=== PATIENT | male | born 1945 | race Caucasian/White ===

== ENCOUNTER 2016-10-21 15:42 | Inpatient (IN) | payer MEDICARE ==
[~2016-10-21] VITALS: Ht 193 cm; Wt 90.7 kg
[2016-10-21] MEDS ORDERED: IV NORMAL SALINE 1000ML BAG 1,000 ML IV SCH (16:07)
--- NOTE | 2016-10-21 16:43 | RAD ---
Indication: Cough and syncope. Time of exam 1635 hours. FINDINGS: The heart size is normal. The lungs are clear. No pleural effusion or pneumothorax is identified. The pulmonary vascularity is normal. IMPRESSION: No acute abnormality detected.
[2016-10-21 16:50] LABS: BASO % 1 % (0-3); EOS % 1 % (0-3); HEMATOCRIT 45.9 % (39.0-53.0); HEMOGLOBIN 15.4 g/dL (13.0-17.5); LYMPH # 1.3 x10^3/uL (1.0-4.8); LYMPH % 16 % (24-48); MEAN CORPUSCULAR HEMOGLOBIN 31 pg (25-35); MEAN CORPUSCULAR HGB CONC 34 g/dL (31-37); MEAN CORPUSCULAR VOLUME 91 fL (79-100); MONO % 10 % (0-9); NEUT % 72 % (31-73); PLATELET COUNT 203 x10^3/uL (140-400); RED BLOOD COUNT 5.02 x10^6/uL (4.30-5.70); RED CELL DISTRIBUTION WIDTH 13.4 % (11.5-14.5)
[2016-10-21 16:59] LABS: CALCIUM 9.4 mg/dL (8.5-10.1); CREATININE 1.2 mg/dL (0.7-1.3); GFR 59.7; POTASSIUM 3.7 mmol/L (3.5-5.1)
[2016-10-21 17:05] LABS: TOTAL BILIRUBIN 0.4 mg/dL (0.2-1.0); TOTAL PROTEIN 8.1 g/dL (6.4-8.2)
[2016-10-21 17:20] LABS: CKMB MASS < 0.5 ng/mL (0.0-3.6); CREATINE KINASE 55 U/L (39-308)
--- NOTE | 2016-10-21 18:16 | PHYS DOC ---
Past Medical History Past Medical History: No Pertinent History Past Surgical History: Other Additional Past Surgical Histo: "INTESTINE GROWTH REMOVAL" Alcohol Use: None Drug Use: None Adult General Chief Complaint Chief Complaint: syncope HPI HPI Patient is a 70 year old male brought to the ED from his doctor's office after having a syncopal episode. I was called by Dr. Hooker who told me that the patient has had a cough and been sick, his blood pressure was low in the office and he had a brief syncopal episode. He advised the patient to come to the ED for further evaluation. The patient tells me that he had some vomiting and diarrhea this morning. He's had a cough for about 3 days. Patient's said he is just been in bed for that time and has not been eating or drinking that much either. The patient does not have COPD. He is not a smoker. He is in good general health. PCP Dr. Hooker Review of Systems Review of Systems Constitutional: He has had chills Eyes: Denies change in visual acuity, redness, or eye pain [] HENT: Denies nasal congestion or sore throat [] Respiratory: As in history of present illness [] Cardiovascular: Chest pain sounds musculoskeletal and not cardiac GI: Positive for a couple of episodes each of vomiting and diarrhea just today : Denies dysuria or hematuria [] Musculoskeletal: Denies back pain or joint pain [] Integument: Denies rash or skin lesions [] Neurologic: Denies headache, focal weakness or sensory changes [] Current Medications Current Medications Current Medications Medications (Trade) Dose Ordered Sig/Amarjit Start Time Stop Time Status Last Admin Dose Admin Sodium Chloride (Iv Sodium Chloride 0.9% 1000ml Bag) 1,000 ml @ 1,000 mls/hr Q1H 10/21/16 16:07 10/21/16 17:06 DC 10/21/16 16:29 1,000 MLS/HR Allergies Allergies Allergies Coded Allergies Type Severity Reaction Last Updated Verified No Known Drug Allergies 10/21/16 No Physical Exam Physical Exam Constitutional: Well developed, well nourished, alert, appears to not feel well , appears weak, systolic blood pressure 105 HENT: Normocephalic, atraumatic, bilateral external ears normal, nose normal. [] Eyes: conjunctiva normal, no discharge. [] Neck: Normal range of motion, no stridor. [] Cardiovascular:Heart rate regular rhythm, no murmur [] Lungs & Thorax: Bilateral breath sounds clear to auscultation [] Abdomen: Bowel sounds normal, soft, no tenderness, no masses, no pulsatile masses. [] Skin: Warm, dry, no erythema, no rash. [] Extremities: No tenderness, no cyanosis, no clubbing, ROM intact, no edema. [] Neurologic: Alert and oriented X 3, normal motor function, normal sensory function, no focal deficits noted. [] Current Patient Data Vital Signs Vital Signs Date Time Temp Pulse Resp B/P Pulse Ox O2 Delivery O2 Flow Rate FiO2 10/21/16 17:55 73 16 122/59 97 Room Air 10/21/16 16:04 97.6 97.6 Lab Values Laboratory Tests Test 10/21/16 16:30 White Blood Count 8.0x10^3/uL (4.0-11.0) Red Blood Count 5.02x10^6/uL (4.30-5.70) Hemoglobin 15.4g/dL (13.0-17.5) Hematocrit 45.9% (39.0-53.0) Mean Corpuscular Volume 91fL (79-100) Mean Corpuscular Hemoglobin 31pg (25-35) Mean Corpuscular Hemoglobin Concent 34g/dL (31-37) Red Cell Distribution Width 13.4% (11.5-14.5) Platelet Count 203x10^3/uL (140-400) Neutrophils (%) (Auto) 72% (31-73) Lymphocytes (%) (Auto) 16% (24-48) L Monocytes (%) (Auto) 10% (0-9) H Eosinophils (%) (Auto) 1% (0-3) Basophils (%) (Auto) 1% (0-3) Neutrophils # (Auto) 5.8x10^3uL (1.8-7.7) Lymphocytes # (Auto) 1.3x10^3/uL (1.0-4.8) Monocytes # (Auto) 0.8x10^3/uL (0.0-1.1) Eosinophils # (Auto) 0.1x10^3/uL (0.0-0.7) Basophils # (Auto) 0.0x10^3/uL (0.0-0.2) Sodium Level 141mmol/L (136-145) Potassium Level 3.7mmol/L (3.5-5.1) Chloride Level 103mmol/L (98-107) Carbon Dioxide Level 29mmol/L (21-32) Anion Gap 9 (6-14) Blood Urea Nitrogen 15mg/dL (8-26) Creatinine 1.2mg/dL (0.7-1.3) Estimated GFR (Cockcroft-Gault) 59.7 BUN/Creatinine Ratio 13 (6-20) Glucose Level 132mg/dL (70-99) H Lactic Acid Level 1.6mmol/L (0.4-2.0) Calcium Level 9.4mg/dL (8.5-10.1) Total Bilirubin 0.4mg/dL (0.2-1.0) Aspartate Amino Transferase (AST) 18U/L (15-37) Alanine Aminotransferase (ALT) 28U/L (16-63) Alkaline Phosphatase 91U/L (46-116) Creatine Kinase 55U/L (39-308) Creatine Kinase MB (Mass) < 0.5ng/mL (0.0-3.6) Creatine Kinase MB Relative Index % (0-4) Troponin I Quantitative < 0.017ng/mL (0.000-0.055) YL-Pmr-I-Type Natriuretic Peptide 245pg/mL (0-124) H Total Protein 8.1g/dL (6.4-8.2) Albumin 4.0g/dL (3.4-5.0) Albumin/Globulin Ratio 1.0 (1.0-1.7) Laboratory Tests 10/21/16 16:30 Laboratory Tests 10/21/16 16:30 EKG EKG 12-lead EKG read by me. Sinus rhythm. Heart rate 60. There are no acute ST or T wave changes indicative of ischemia or infarction. No STEMI. 1556 [] Radiology/Procedures Radiology/Procedures One view chest x-ray read by me. Heart size normal. Lung swain are clear. No pneumonia. [] Course & Med Decision Making Course & Med Decision Making Pertinent Labs and Imaging studies reviewed. (See chart for details) 70-year-old male who has had a cough for about 3 days and then today had some vomiting and diarrhea, had a syncopal episode in his doctor's office. I discussed with the patient eating some labs, chest x-ray, EKG, and giving him some IV fluids, he is agreeable to that plan. Labs unremarkable for acute findings, chest x-ray does not show an infiltrate. Patient had 1 L IV normal saline in the ED and did feel a little bit better but still very weak just when sitting up on the edge of the cart with his legs dangling. The patient is still weak and unsteady after syncopal episode today, I believe he should be hospitalized for some more IV fluids. I do not see a reason for antibiotics at this time. I discussed the case with Dr. Mcgrath who will admit the patient. I wrote bridge orders.pl [] Dragon Disclaimer Dragon Disclaimer This electronic medical record was generated, in whole or in part, using a voice recognition dictation system. Departure Departure Impression: Primary Impression: Syncope Additional Impression: Dehydration Disposition: 09 ADMITTED INPATIENT Admitting Physician: Romana Hooker Condition: STABLE Referrals: ROMANA HOOKER MD (PCP) Problem Qualifiers SHWETHA RIDDLE MD Oct 21, 2016 18:16
[2016-10-21] MEDS: IV NORMAL SALINE 1000ML BAG 1,000 ML IV SCH (19:20)
[2016-10-21 20:38] VITALS: BP 124/56
[2016-10-21 23:12] LABS: BILIRUBIN,URINE NEGATIVE (NEG); GLUCOSE,URINE NEGATIVE (NEG); NITRITE,URINE NEGATIVE (NEG); PH,URINE 5.5; PROTEIN,URINE NEGATIVE (NEG-TRACE); UROBILINOGEN,URINE 0.2 mg/dL (0.2 mg/dL)
[2016-10-21 23:20] LABS: BACTERIA,URINE 0 /HPF (0-FEW); RBC,URINE 0 /HPF (0-2)
[2016-10-21 23:21] LABS: SQUAMOUS EPITHELIAL CELL,UR OCC /LPF
[2016-10-21 23:49] VITALS: BP 102/57
[2016-10-22] MEDS: IV NORMAL SALINE 1000ML BAG 1,000 ML IV SCH ×4 (00:30→16:47)
[2016-10-22 03:35] VITALS: BP 132/62
--- NOTE | 2016-10-22 06:31 | EKG ---
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
[2016-10-22 07:20] VITALS: BP 133/49
[2016-10-22 10:58] VITALS: BP 140/58
--- NOTE | 2016-10-22 11:01 | PDOC ---
PROGRESS NOTES Subjective Subjective Pt awake and pleasant. States he is feeling much better, however continues to c/ o generalized weakness. Pt states he continues to have no appetite and does have some mild nausea. Objective Objective Pt awake and alert. NAD. VSS. Tmax 100.4. Lungs CTA bilat. Resp even and unlabored. Pt on RA not requiring supplemental O2. Heart with RRR. No murmurs. Abdomen soft, nondistended, and tender throughout with palpation. Vital Signs Date Time Temp Pulse Resp B/P Pulse Ox O2 Delivery O2 Flow Rate FiO2 10/22/16 07:50 Room Air 10/22/16 07:20 100.4 75 19 133/49 94 100.4 Intake and Output 10/22/16 07:00 Intake Total 1000 ml Output Total 320 ml Balance 680 ml Intake Oral 0 ml IV Total 1000 ml Output Urine Total 320 ml # Voids 1 Assessment Assessment Problems Medical Problems: (1) Dehydration Status: Acute (2) Syncope Status: Acute Plan Plan of Care 1. Viral gastroenteritis with dehydration and syncope -CXR WNL -EKG without signs of ischemia -IVF bolus given in ER, running continuous NS at 200cc/hr -Labs relatively WNL -Tmax 100.4 Hopeful for Dc tomorrow am following rehydration. Comment Review of Relevant I have reviewed the following items lala (where applicable) has been applied. Labs Laboratory Tests Test 10/21/16 16:30 10/21/16 23:00 White Blood Count 8.0x10^3/uL (4.0-11.0) Red Blood Count 5.02x10^6/uL (4.30-5.70) Hemoglobin 15.4g/dL (13.0-17.5) Hematocrit 45.9% (39.0-53.0) Mean Corpuscular Volume 91fL (79-100) Mean Corpuscular Hemoglobin 31pg (25-35) Mean Corpuscular Hemoglobin Concent 34g/dL (31-37) Red Cell Distribution Width 13.4% (11.5-14.5) Platelet Count 203x10^3/uL (140-400) Neutrophils (%) (Auto) 72% (31-73) Lymphocytes (%) (Auto) 16% (24-48) Monocytes (%) (Auto) 10% (0-9) Eosinophils (%) (Auto) 1% (0-3) Basophils (%) (Auto) 1% (0-3) Neutrophils # (Auto) 5.8x10^3uL (1.8-7.7) Lymphocytes # (Auto) 1.3x10^3/uL (1.0-4.8) Monocytes # (Auto) 0.8x10^3/uL (0.0-1.1) Eosinophils # (Auto) 0.1x10^3/uL (0.0-0.7) Basophils # (Auto) 0.0x10^3/uL (0.0-0.2) Sodium Level 141mmol/L (136-145) Potassium Level 3.7mmol/L (3.5-5.1) Chloride Level 103mmol/L (98-107) Carbon Dioxide Level 29mmol/L (21-32) Anion Gap 9 (6-14) Blood Urea Nitrogen 15mg/dL (8-26) Creatinine 1.2mg/dL (0.7-1.3) Estimated GFR (Cockcroft-Gault) 59.7 BUN/Creatinine Ratio 13 (6-20) Glucose Level 132mg/dL (70-99) Lactic Acid Level 1.6mmol/L (0.4-2.0) Calcium Level 9.4mg/dL (8.5-10.1) Total Bilirubin 0.4mg/dL (0.2-1.0) Aspartate Amino Transf (AST/SGOT) 18U/L (15-37) Alanine Aminotransferase (ALT/SGPT) 28U/L (16-63) Alkaline Phosphatase 91U/L (46-116) Creatine Kinase 55U/L (39-308) Creatine Kinase MB (Mass) < 0.5ng/mL (0.0-3.6) Creatine Kinase MB Relative Index % (0-4) Troponin I Quantitative < 0.017ng/mL (0.000-0.055) WI-Tdb-O-Type Natriuretic Peptide 245pg/mL (0-124) Total Protein 8.1g/dL (6.4-8.2) Albumin 4.0g/dL (3.4-5.0) Albumin/Globulin Ratio 1.0 (1.0-1.7) Urine Collection Type Unknown Urine Color Yellow Urine Clarity Clear Urine pH 5.5 Urine Specific [place] 1.020 Urine Protein Negativemg/dL (NEG-TRACE) Urine Glucose (UA) Negativemg/dL (NEG) Urine Ketones (Stick) 15mg/dL (NEG) Urine Blood Negative (NEG) Urine Nitrite Negative (NEG) Urine Bilirubin Negative (NEG) Urine Urobilinogen Dipstick 0.2mg/dL (0.2 mg/dL) Urine Leukocyte Esterase Negative (NEG) Urine RBC 0/HPF (0-2) Urine WBC 1-4/HPF (0-4) Urine Squamous Epithelial Cells Occ/LPF Urine Bacteria 0/HPF (0-FEW) Urine Hyaline Casts Few/HPF Urine Mucus Marked/LPF Laboratory Tests Test 10/21/16 16:30 10/21/16 23:00 White Blood Count 8.0x10^3/uL (4.0-11.0) Red Blood Count 5.02x10^6/uL (4.30-5.70) Hemoglobin 15.4g/dL (13.0-17.5) Hematocrit 45.9% (39.0-53.0) Mean Corpuscular Volume 91fL (79-100) Mean Corpuscular Hemoglobin 31pg (25-35) Mean Corpuscular Hemoglobin Concent 34g/dL (31-37) Red Cell Distribution Width 13.4% (11.5-14.5) Platelet Count 203x10^3/uL (140-400) Neutrophils (%) (Auto) 72% (31-73) Lymphocytes (%) (Auto) 16% (24-48) Monocytes (%) (Auto) 10% (0-9) Eosinophils (%) (Auto) 1% (0-3) Basophils (%) (Auto) 1% (0-3) Neutrophils # (Auto) 5.8x10^3uL (1.8-7.7) Lymphocytes # (Auto) 1.3x10^3/uL (1.0-4.8) Monocytes # (Auto) 0.8x10^3/uL (0.0-1.1) Eosinophils # (Auto) 0.1x10^3/uL (0.0-0.7) Basophils # (Auto) 0.0x10^3/uL (0.0-0.2) Sodium Level 141mmol/L (136-145) Potassium Level 3.7mmol/L (3.5-5.1) Chloride Level 103mmol/L (98-107) Carbon Dioxide Level 29mmol/L (21-32) Anion Gap 9 (6-14) Blood Urea Nitrogen 15mg/dL (8-26) Creatinine 1.2mg/dL (0.7-1.3) Estimated GFR (Cockcroft-Gault) 59.7 BUN/Creatinine Ratio 13 (6-20) Glucose Level 132mg/dL (70-99) Lactic Acid Level 1.6mmol/L (0.4-2.0) Calcium Level 9.4mg/dL (8.5-10.1) Total Bilirubin 0.4mg/dL (0.2-1.0) Aspartate Amino Transf (AST/SGOT) 18U/L (15-37) Alanine Aminotransferase (ALT/SGPT) 28U/L (16-63) Alkaline Phosphatase 91U/L (46-116) Creatine Kinase 55U/L (39-308) Creatine Kinase MB (Mass) < 0.5ng/mL (0.0-3.6) Creatine Kinase MB Relative Index % (0-4) Troponin I Quantitative < 0.017ng/mL (0.000-0.055) HL-Cme-Z-Type Natriuretic Peptide 245pg/mL (0-124) Total Protein 8.1g/dL (6.4-8.2) Albumin 4.0g/dL (3.4-5.0) Albumin/Globulin Ratio 1.0 (1.0-1.7) Urine Collection Type Unknown Urine Color Yellow Urine Clarity Clear Urine pH 5.5 Urine Specific [place] 1.020 Urine Protein Negativemg/dL (NEG-TRACE) Urine Glucose (UA) Negativemg/dL (NEG) Urine Ketones (Stick) 15mg/dL (NEG) Urine Blood Negative (NEG) Urine Nitrite Negative (NEG) Urine Bilirubin Negative (NEG) Urine Urobilinogen Dipstick 0.2mg/dL (0.2 mg/dL) Urine Leukocyte Esterase Negative (NEG) Urine RBC 0/HPF (0-2) Urine WBC 1-4/HPF (0-4) Urine Squamous Epithelial Cells Occ/LPF Urine Bacteria 0/HPF (0-FEW) Urine Hyaline Casts Few/HPF Urine Mucus Marked/LPF Medications Current Medications Sodium Chloride 1,000 ml @ 1,000 mls/hr Q1H IV Last administered on 10/21/16 16:29; Start 10/21/16 at 16:07; Stop 10/21/16 at 17:06; Status DC Sodium Chloride (Iv Sodium Chloride 0.9% 1000ml Bag) 1,000 ml @ 200 mls/hr Q5H IV Last administered on 10/22/16 06:03; Start 10/21/16 at 18:18; Stop at 18:17 Vitals/I & O Vital Sign - Last 24 Hours 10/21/16 10/21/16 10/21/16 10/21/16 15:55 16:04 16:27 16:55 Temp 97.6 97.6 Pulse 66 61 63 67 Resp 16 16 16 B/P 107/59 107/59 127/51 129/50 Pulse Ox 95 95 93 94 O2 Delivery Room Air Room Air Room Air Room Air 10/21/16 10/21/16 10/21/16 10/21/16 17:25 17:55 20:30 20:38 Temp 99.1 99.1 Pulse 57 73 67 Resp 18 B/P 142/55 122/59 124/56 Pulse Ox 96 97 96 O2 Delivery Room Air Room Air Room Air Room Air 10/21/16 10/22/16 10/22/16 10/22/16 23:49 03:35 07:20 07:50 Temp 99.7 99.2 100.4 99.7 99.2 100.4 Pulse 76 73 75 Resp B/P 102/57 132/62 133/49 Pulse Ox 93 95 94 O2 Delivery Room Air Room Air Room Air Room Air Intake and Output 10/21/16 10/21/16 10/22/16 15:00 23:00 07:00 Intake Total 1000 ml 0 ml Output Total 320 ml Balance 1000 ml -320 ml ROMANA KAUR MD Oct 22, 2016 11:01
--- NOTE | 2016-10-22 13:52 | HP ---
ADMIT DATE: 10/21/2016 CHIEF COMPLAINT AND HISTORY OF PRESENT ILLNESS: This is a 70-year-old male who is well known to me from followup in the clinic. The patient presented to the clinic on the date of admission with complaints of a syncopal episode at home. During his examination at the clinic, the patient had another presyncopal episode. The patient was found to have hypotension while in the clinic and was felt to be very dehydrated. The patient stated he had been coughing for approximately 3 days and over the last 24 hours, began to have nausea, vomiting and diarrhea. The patient was encouraged to go to the Emergency Room by ambulance. The patient refused ambulance transportation and presented to the [facility] ER by private vehicle. Upon evaluation in the Emergency Room, laboratory findings are relatively within normal limits. A chest x-ray was done, which was within normal limits. EKG showed sinus rhythm with a heart rate of 60. There were no acute ST or T weight changes indicative of ischemia or infarct. The patient was given 1 liter of normal saline. The patient did state feeling better; however, continued to exhibit signs and symptoms of generalized weakness. It was felt that the patient should be admitted for rehydration. PAST MEDICAL HISTORY: No pertinent medical history. SURGICAL HISTORY: The patient had an intestinal growth removed. FAMILY HISTORY: Noncontributory. SOCIAL HISTORY: The patient denies alcohol, drug or tobacco use. PHYSICAL EXAMINATION: GENERAL: The patient is a well-developed and well-nourished male who appears weak and unstable upon examination. VITAL SIGNS: The patient has hypotension. Heart rate is elevated. The patient has a temperature of 100.4. The patient's oxygen saturation is 96 on room air. HEENT: Head, eyes, ears, nose and throat are unremarkable. NECK: Supple, without adenopathy or thyromegaly. CHEST: Clear to auscultation. CARDIOVASCULAR: Regular rate and rhythm without S3, S4 or murmur. EXTREMITIES: No clubbing, cyanosis or edema. ABDOMEN: Soft and nondistended. Bowel sounds hyperactive x 4 with generalized tenderness. NEUROLOGIC: The patient is pleasant in conversation; however, weak, neurologically grossly intact. IMPRESSION: Probable viral gastroenteritides with secondary dehydration and syncopal episode. PLAN: The patient has been admitted to the hospital for continued IV fluids for rehydration. The patient will be given antinausea medication as needed. The patient will start on clear liquid diet and then advance as tolerated as the nausea, vomiting and diarrhea subside. We will continue to monitor the patient closely during his hospitalization and treat him appropriately. ROMANA KAUR MD DR: DANNI/yared JOB#: [id number] / [id number]
[2016-10-22 14:50] VITALS: BP 144/64
[2016-10-22 19:20] VITALS: BP 130/63
[2016-10-22 23:36] VITALS: BP 131/68
[2016-10-23 03:44] VITALS: BP 107/56
[2016-10-23 07:00] VITALS: BP 115/64
--- NOTE | 2016-10-23 10:08 | PDOC ---
PROGRESS NOTES Subjective Subjective Pt awake and pleasant. States he is feeling much better and has an appetite this am. Pt states his n/v/d has subsided. Objective Objective Pt awake and alert. NAD. VSS. Afebrile. Lungs CTA bilat. Resp even and unlabored. Heart with RRR. No murmurs. No pedal edema. Abdomen soft, nondistended, and mildly tender to palpation. Vital Signs Date Time Temp Pulse Resp B/P Pulse Ox O2 Delivery O2 Flow Rate FiO2 10/23/16 07:00 98.8 70 19 115/64 94 Room Air 98.8 Intake and Output 10/23/16 07:00 Intake Total 960 ml Balance 960 ml Intake Oral 960 ml # Voids 7 # Bowel Movements 1 Assessment Assessment Problems Medical Problems: (1) Dehydration Status: Acute (2) Syncope Status: Acute Plan Plan of Care 1. Viral gastroenteritis with dehydration and syncope -CXR WNL -EKG without signs of ischemia -IVF bolus given in ER, running continuous NS at 200cc/hr -Labs relatively WNL -Tmax 100.4 on 10/22 Diet advanced this am. If pt tolerated regular diet without increased n/v, pt may Dc home. Upon Dc, resume previous home medications. Regular diet. Activity as tolerated. F/u in our office in 2 weeks ([phone]). Comment Review of Relevant I have reviewed the following items lala (where applicable) has been applied. Labs Laboratory Tests Test 10/21/16 16:30 10/21/16 23:00 White Blood Count 8.0x10^3/uL (4.0-11.0) Red Blood Count 5.02x10^6/uL (4.30-5.70) Hemoglobin 15.4g/dL (13.0-17.5) Hematocrit 45.9% (39.0-53.0) Mean Corpuscular Volume 91fL (79-100) Mean Corpuscular Hemoglobin 31pg (25-35) Mean Corpuscular Hemoglobin Concent 34g/dL (31-37) Red Cell Distribution Width 13.4% (11.5-14.5) Platelet Count 203x10^3/uL (140-400) Neutrophils (%) (Auto) 72% (31-73) Lymphocytes (%) (Auto) 16% (24-48) Monocytes (%) (Auto) 10% (0-9) Eosinophils (%) (Auto) 1% (0-3) Basophils (%) (Auto) 1% (0-3) Neutrophils # (Auto) 5.8x10^3uL (1.8-7.7) Lymphocytes # (Auto) 1.3x10^3/uL (1.0-4.8) Monocytes # (Auto) 0.8x10^3/uL (0.0-1.1) Eosinophils # (Auto) 0.1x10^3/uL (0.0-0.7) Basophils # (Auto) 0.0x10^3/uL (0.0-0.2) Sodium Level 141mmol/L (136-145) Potassium Level 3.7mmol/L (3.5-5.1) Chloride Level 103mmol/L (98-107) Carbon Dioxide Level 29mmol/L (21-32) Anion Gap 9 (6-14) Blood Urea Nitrogen 15mg/dL (8-26) Creatinine 1.2mg/dL (0.7-1.3) Estimated GFR (Cockcroft-Gault) 59.7 BUN/Creatinine Ratio 13 (6-20) Glucose Level 132mg/dL (70-99) Lactic Acid Level 1.6mmol/L (0.4-2.0) Calcium Level 9.4mg/dL (8.5-10.1) Total Bilirubin 0.4mg/dL (0.2-1.0) Aspartate Amino Transf (AST/SGOT) 18U/L (15-37) Alanine Aminotransferase (ALT/SGPT) 28U/L (16-63) Alkaline Phosphatase 91U/L (46-116) Creatine Kinase 55U/L (39-308) Creatine Kinase MB (Mass) < 0.5ng/mL (0.0-3.6) Creatine Kinase MB Relative Index % (0-4) Troponin I Quantitative < 0.017ng/mL (0.000-0.055) GV-Dvk-U-Type Natriuretic Peptide 245pg/mL (0-124) Total Protein 8.1g/dL (6.4-8.2) Albumin 4.0g/dL (3.4-5.0) Albumin/Globulin Ratio 1.0 (1.0-1.7) Urine Collection Type Unknown Urine Color Yellow Urine Clarity Clear Urine pH 5.5 Urine Specific [place] 1.020 Urine Protein Negativemg/dL (NEG-TRACE) Urine Glucose (UA) Negativemg/dL (NEG) Urine Ketones (Stick) 15mg/dL (NEG) Urine Blood Negative (NEG) Urine Nitrite Negative (NEG) Urine Bilirubin Negative (NEG) Urine Urobilinogen Dipstick 0.2mg/dL (0.2 mg/dL) Urine Leukocyte Esterase Negative (NEG) Urine RBC 0/HPF (0-2) Urine WBC 1-4/HPF (0-4) Urine Squamous Epithelial Cells Occ/LPF Urine Bacteria 0/HPF (0-FEW) Urine Hyaline Casts Few/HPF Urine Mucus Marked/LPF Medications Current Medications Sodium Chloride 1,000 ml @ 1,000 mls/hr Q1H IV Last administered on 10/21/16 16:29; Start 10/21/16 at 16:07; Stop 10/21/16 at 17:06; Status DC Sodium Chloride (Iv Sodium Chloride 0.9% 1000ml Bag) 1,000 ml @ 200 mls/hr Q5H IV Last administered on 10/22/16 16:47; Start 10/21/16 at 18:18; Stop at 18:17; Status DC Vitals/I & O Vital Sign - Last 24 Hours 10/22/16 10/22/16 10/22/16 10/22/16 10:58 14:50 19:20 20:16 Temp 98.6 98.8 99.2 98.6 98.8 99.2 Pulse 61 70 60 Resp 18 18 16 B/P 140/58 144/64 130/63 Pulse Ox 96 97 95 O2 Delivery Room Air Room Air Room Air Room Air 10/22/16 10/23/16 10/23/16 23:36 03:44 07:00 Temp 98.8 99.8 98.8 98.8 99.8 98.8 Pulse 64 66 70 Resp 16 16 19 B/P 131/68 107/56 115/64 Pulse Ox 95 94 94 O2 Delivery Room Air Room Air Room Air Intake and Output 10/22/16 10/22/16 10/23/16 15:00 23:00 07:00 Intake Total 660 ml 300 ml Balance 660 ml 300 ml ROMANA KAUR MD Oct 23, 2016 10:08
--- NOTE | 2016-10-23 18:13 | DS ---
DATE OF DISCHARGE: 10/23/2016 Bonny Sanchez APRN dictating on behalf of Dr. Romana Hooker. DISCHARGE DIAGNOSES: Viral gastrointestinal enteritis with secondary dehydration and syncopal episode. HISTORY OF PRESENT ILLNESS: This is a 70-year-old male who presented to our clinic on the day of hospital admission. The patient had a 3-day history of a cough and a 24-hour history of nausea, vomiting and diarrhea, which resulted in weakness and inability to carry out ADLs. Upon examination in our clinic, the patient was found to be hypotensive. The patient did have a presyncopal episode while in our clinic and was sent to the Emergency Room for further evaluation and treatment. Upon examination in the ER, laboratory findings were relatively within normal limits. The patient was given fluid bolus, which did improve his signs and symptoms, however, he continued to have extreme weakness. The patient was admitted to the hospital for further rehydration and evaluation. SUMMARY OF STAY: Upon admission IV fluids were initiated at 200 mL per hour of normal saline. The patient was offered Zofran for his nausea, however, had no further nausea or vomiting upon admission. A chest x-ray was done on 10/21/2016 which revealed no acute abnormalities. The patient's demeanor improved significantly over 24 hours and on the day of discharge, the patient was able to tolerate a regular diet without increased nausea or vomiting. DISPOSITION: The patient was discharged home. DIET: Regular. ACTIVITY: As tolerated. DISCHARGE MEDICATIONS: The patient is currently on no medications and therefore has none to resume. FOLLOWUP: The patient is to follow up in our clinic in 2 weeks, sooner if needed. The patient was encouraged to begin his diet with a high starchy diet and advance as tolerated. The patient stated understanding of the discharge summary, denied questions and will follow up in our clinic accordingly. ROMANA HOOKER MD DR: DANNI/yared JOB#: [id number] / [id number]
--- NOTE | 2016-10-27 11:23 | ACF ---
Admission Forms Criteria SYNCOPE Clinical Indications for Admission to Inpatient Care ( Place 'X' for any and all applicable criteria): Admission is indicated for syncope and ANY ONE of the following (1)(2)(3)(4)(5) (6)(7) : [X]I. Inpatient admission required rather than observation care (Also use Syncope: Observation Care Criteria as appropriate) because of ANY ONE of the following: [ ]a) Hemodynamic instability that is severe or persistent [ ]b) Cardiac arrhythmias of immediate concern identified or strongly suspected (eg, needs electrophysiologic study) [ ]c) Acute coronary syndrome identified (Also use Myocardial Infarction or Angina Criteria form ) [ ]d) Structural cardiac disorder (eg, aortic stenosis) suspected as cause that requires immediate correction [ ]e) Respiratory symptoms (eg, dyspnea, tachypnea) that are severe or persistent [ ]f) Neurologic signs or symptoms that are severe or persistent ( eg, stroke, seizures, altered mental status) [ ]g) Severe electrolyte abnormalities requiring inpatient care [ ]h) Supplemental oxygen or respiratory treatment for over 24 hrs that are performable only in acute inpatient setting [ ]i) IV fluid to replace significant ongoing (eg, for over 24 hrs ) losses (>3 L/m2 per day) [ ]j) Continuous intravenous infusion of anticoagulation, platelet inhibitor, vasoactive, or antiarrhythmic medication(15)(16) [ ]k) Pulmonary artery catheter monitoring [ ]l) Temporary pacemaker placement(17) [ ]m) Emergent cardioversion(18) [X]n) Other conditions, treatment or monitoring requiring inpatient admission [ ]II. Suspicion of imminently dangerous cause (eg, rare causes like pericardial tamponade, pulmonary embolism) [ ]III. Syncope causing severe injury requiring hospitalization Extended stay beyond goal length of stay may be needed for(28) [ ]a) Dangerous arrhythmia(15)(23)(27)(29) [ ]b) Myocardial ischemia [ ]c) Seizure disorder [ ]d) Syncope-related injuries The original [employer] content created by [employer] has been revised. The portions of the content which have been revised are identified through the use of italic text or in bold, and [employer] has neither reviewed nor approved the modified material. All other unmodified content is copyright [employer]. Please see references footnoted in the original [facility] edition 2016 Admission Criteria Met?: Yes TERENCE MCKEON Oct 27, 2016 11:23
== END 2016-10-23 10:45 | disposition home or self-care (01) | DRG 392 ==
LOC: ER 15:42 → 6 SOUTH 18:16
PROVIDERS: ADMIT Family Medicine; ATTEND Family Medicine
DX: A08.4 Viral intestinal infection, unspecified (principal); E86.0 Dehydration; R55 Syncope and collapse; I95.9 Hypotension, unspecified; Z79.899 Other long term (current) drug therapy; Z98.890 Other specified postprocedural states
CPT/HCPCS: 36415; 71010; 80053; 81001; 82553; 83605; 83880; 84484; 85027; 93005; 96360; 96361; J7030; 99285-25

== ENCOUNTER → 2018-08-17 | Outpatient (CLI) | payer MEDICARE ==
--- NOTE | 2018-08-17 18:59 | RAD ---
MR#: [id number] Date of Study: 08/17/2018 Ordering Physician: ROMANA KAUR Referring Physician: LALITHA WHALEY Tech: APPROVED REPORT Test Type: Exercise Stress Nurse/Tech: Michelle Phillips R.N. Test Indications: soa, dizziness Resting Heart Rate: 76 bpm Resting Blood Pressure: 124/58mmHg Pretest Chest Pain: No chest pain Nurse/Tech Notes lungs cta POST EXERCISE Reason for Termination: Fatigue, pt unable to walk on the treadmill safely Target HR: 144 % of Maximum Predicted HR: 122 bpm Chest Pain: No. Arrhythmia: Yes. pvcs noted ST Change: . see attached ECG INTERPRETATION Stress EKG Conclusion: pt unable to walk safely on the treadmill, test stopped by RN. Conclusion 1. Non-diagnostic Treadmill EKG study due to test being stopped due to patient inability to walk safe ly on treadmill. Recommendations Consider chemical stress test in the form of dobutamine echo or lexiscan. Signed by : Boom Marti, Electronically Approved : 08/17/2018 18:58:47
== END | disposition home or self-care (01) ==
LOC: NM 11:57
PROVIDERS: ATTEND Family Medicine
DX: R06.02 Shortness of breath (principal); R42 Dizziness and giddiness; R53.83 Other fatigue
CPT/HCPCS: 93017

== ENCOUNTER → 2018-09-07 | Outpatient (CLI) | payer MEDICARE ==
[2018-09-07] VITALS (15 sets, daily range): BP systolic 114–154; BP diastolic 55–76
[~2018-09-07] VITALS: Ht 193 cm; Wt 88.0 kg
[~2018-09-07] MED LIST: DIAZ5TAB4 PO; GELATIN SPONGE SIZE 12-7MM SPONGE. ONE; GELATIN SPONGE SIZE 12-7MM SPONGE. TP ONE; HYDR-3164 PO; LEVO75TA5 PO; LIDOCAINE WITH 8.4% SOD BICARB 3 ML DISP.SYRIN. IJ ONE; LIDOCAINE WITH 8.4% SOD BICARB 3 ML DISP.SYRIN. ONE; MIDAZOLAM HCL/PF 2 MG/2 ML VIAL. IV ONE; MIDAZOLAM HCL/PF 2 MG/2 ML VIAL. ONE; MORPHINE SULFATE 10 MG/ML VIAL. IV ONE; MORPHINE SULFATE 10 MG/ML VIAL. ONE
[2018-09-07 07:50] LABS: BASO # 0.1 x10^3/uL (0.0-0.2); BASO % 1 % (0-3); EOS # 0.3 x10^3/uL (0.0-0.7); EOS % 5 % (0-3); HEMATOCRIT 43.4 % (39.0-53.0); HEMOGLOBIN 14.5 g/dL (13.0-17.5); LYMPH % 29 % (24-48); MEAN CORPUSCULAR HEMOGLOBIN 31 pg (25-35); MEAN CORPUSCULAR HGB CONC 33 g/dL (31-37); MEAN CORPUSCULAR VOLUME 91 fL (79-100); MONO # 0.6 x10^3/uL (0.0-1.1); MONO % 8 % (0-9); NEUT % 57 % (31-73); PLATELET COUNT 310 x10^3/uL (140-400); RED BLOOD COUNT 4.74 x10^6/uL (4.30-5.70); RED CELL DISTRIBUTION WIDTH 14.8 % (11.5-14.5)
[2018-09-07 07:59] LABS: PROTHROMBIN TIME PATIENT 12.6 SEC (11.7-14.0)
--- NOTE | 2018-09-08 15:06 | RAD ---
Ultrasound-guided biopsy, liver mass 09/07/2018 Indication: Large hepatic mass Discussion: The risks and benefits of the procedure were discussed with the patient. Informed consent was obtained. The patient was brought to the IR suite and placed in the supine position. A timeout procedure was performed. Ultrasound evaluation demonstrates a large echogenic mass in the right lobe of liver. Central necrosis appears to be present. This mass is targeted for biopsy. 1% lidocaine was administered for local anesthesia. Under direct ultrasound guidance a 17-gauge needle was advanced to the mass. 2 passes with an 18-gauge automated biopsy needle were made. Only scant material was returned. Gelfoam embolization of the biopsy tract was performed as the needle was removed. A second area of the mass was then targeted for biopsy in identical fashion, again was only scant material being retrieved. Gelfoam embolization of this tract was also performed. All needles were removed. Manual pressure was held. Sterile dressings were applied. The procedures performed under conscious sedation including continuous cardiopulmonary monitoring via a dedicated sedation nurse. [id number]-[id number] sedation time: 30 minutes Impression: Ultrasound-guided biopsy of the large right hepatic mass yielded only scant material. Pathologic evaluation pending.
--- NOTE | 2018-09-12 15:07 | PATHOLOGY ---
[facility] Accession Number: [id number] . 01 Material submitted: . LIVER MASS . 01 Clinical history: . Liver mass . 02 Diagnosis: Liver mass, CT-guided needle biopsy: - ADENOCARCINOMA, MODERATELY DIFFERENTIATED. SEE COMMENT. (JPM:andreas; 09/09/2018) QMS/09/09/2018 . 02 Comment: Sections of the liver mass CT-guided needle biopsy reveal a minute fragment of a malignant epithelial neoplasm. The tumor cells have a solid and focal acinar arrangement. The tumor cells have ample amounts of eosinophilic, focally vacuolated cytoplasm, and possess enlarged, rounded to ovoid hyperchromatic nuclei containing small nucleoli. A panel of immunoperoxidase stains is obtained and yields the following results: . Cytokeratin 7: Tumor cells negative. Cytokeratin 20: Few tumor cells positive. CK19: Tumor cells positive. CDX2: Tumor cells positive. Polyclonal CEA: Tumor cells positive. Hepatocyte specific antigen: Tumor cells negative. . The morphologic and immunophenotypic findings are supportive of the diagnosis of a moderately differentiated adenocarcinoma, and are suggestive of bile duct origin (Cholangiocarcinoma) or colonic origin. Lung origin or Hepatocellular carcinoma appear unlikely. Interpetation is limited due to the minute nature of the biopsy in what otherwise is a large solitary liver mass.The case is also examined by Dr. Rhodes and Dr. Somers, both of whom concur with the diagnosis. Results are discussed with Dr Zhang on 09/09/18. (JPM:andreas; 09/09/2018) . . Special stains performed: Immunoperoxidase stains for cytokeratin 7, cytokeratin 20, CK19, CDX2, polyclonal CEA, and hepatocyte specific antigen. . 02 Electronically signed: . David Mejia MD, Pathologist NPI- [id number] . 01 Gross description: . Received in formalin labeled "Herbert Cochran, liver biopsy," is a minute fragment of needle core of rosales soft tissue measuring 0.3 cm in length and less than 0.1 cm in diameter. The specimen is filtered and entirely submitted in cassette A1. Due to the minute nature of the specimen, it may not survive processing. (TSD; 09/07/2018) TOB/TOB . 02 Pathologist provided ICD-10: C22.9 . 02 CPT . 818566, Y78449, M51000 Specimen Comment: A courtesy copy of this report has been sent to Specimen Comment: [phone], . Specimen Comment: Report sent to / DR KAUR Specimen Comment: A duplicate report has been generated due to demographic updates. Performed at: 01 [facility] [address] [facility] [address], [place] [id number] MD Marcelino Harper MD Phone: [phone] Performed at: 02 [facility] [address] [place], [place] [id number] MD David Mejia MD Phone: [phone]
== END | disposition home or self-care (01) ==
LOC: INTRAD 07:02
PROVIDERS: ATTEND Family Medicine
DX: C78.7 Secondary malignant neoplasm of liver and intrahepatic bile duct (principal); C80.1 Malignant (primary) neoplasm, unspecified; Z88.5 Allergy status to narcotic agent
CPT/HCPCS: 36415; 47000; 76942; 85025; 85610; 99152; 99153; J2250; J2270; 77012; 88307; 88341; 88342

== ENCOUNTER 2019-01-30 10:28 | Inpatient (IN) | payer MEDICARE ==
[~2019-01-30] VITALS: Ht 198.1 cm; Wt 84.9 kg
[~2019-01-30 10:28] MED LIST changes: -GELATIN SPONGE SIZE 12-7MM SPONGE. ONE; -GELATIN SPONGE SIZE 12-7MM SPONGE. TP ONE; -LIDOCAINE WITH 8.4% SOD BICARB 3 ML DISP.SYRIN. IJ ONE; -LIDOCAINE WITH 8.4% SOD BICARB 3 ML DISP.SYRIN. ONE; -MIDAZOLAM HCL/PF 2 MG/2 ML VIAL. IV ONE; -MIDAZOLAM HCL/PF 2 MG/2 ML VIAL. ONE; -MORPHINE SULFATE 10 MG/ML VIAL. IV ONE; -MORPHINE SULFATE 10 MG/ML VIAL. ONE
--- NOTE | 2019-01-30 12:02 | HP ---
ADMIT DATE: 01/30/2019 CHIEF COMPLAINT AND HISTORY OF PRESENT ILLNESS: This 73-year-old white male is well known to me in followup in the office. The patient within the last 6-8 months was diagnosed with neuroendocrine tumor of the liver. It was initially thought to be cholangiocarcinoma, but on further testing was determined to be a neuroendocrine tumor. The patient started treatment at [facility], but then due to interpersonal difficulties and according to his , not hearing back from them, received no treatment again for quite a while. They then went to [facility]. He has recently got out of [facility] with dehydration for hydration, still found to have 11-13 cm liver lesion. PET scanning showed a lymph node in the area in addition that is positive. He is quickly losing weight and having failure to thrive. Last recommendation by was to get octreotide, which they have been unable to do and in his last trip to , they wanted to restart the process of diagnosis over with biopsies, etc. prior to treating. I spoke with his on the day of admission. He was on the floor at least a couple of times overnight, trying to crawl around as he is unable to walk, weak, still not taking p.o. well and was actually diagnosed currently by swallow study of dysphagia during this [facility] stay last week. It was elected to admit him for hydration as well as urgent oncological consultation as to whether we can start the octreotide, whether this will help his symptomatology overall or not at this point and further opinion. PAST MEDICAL HISTORY: Remarkable for that as mentioned above. He has had frequent episodes of diarrhea for many years with some small bowel obstructions, has a history of hypothyroidism, has a history of anxiety. MEDICATIONS: Brought with the patient, listed on the computer and have been addressed. ALLERGIES: He has no known drug allergies. 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 , lives at home with his . FAMILY HISTORY: Noncontributory other than cardiovascular disease. REVIEW OF SYSTEMS: Remarkable for the weakness, difficulties walking, etc. PHYSICAL EXAMINATION: GENERAL: He is a well-developed, well-nourished white male, who appears much thinner than his prior state. VITAL SIGNS: Stable. He is afebrile. HEAD, EYES, EARS, NOSE AND THROAT: Unremarkable. NECK: Supple without lymphadenopathy or thyromegaly. CHEST: Clear to auscultation and percussion. HEART: Regular rate and rhythm without S3, S4 or murmur. ABDOMEN: Does reveal a palpable enlarged liver that is somewhat tender. EXTREMITIES: Without cyanosis, clubbing, edema. NEUROLOGIC: Intact. IMPRESSION: 1. Neuroendocrine tumor of the liver. 2. Progressive decline from the same, with pain from the same as well as difficulty taking p.o., likely not related necessarily to the same, but with dysphagia recently diagnosed. PLAN: The patient has been admitted. He will be hydrated. Oncology will be asked to see him, and the patient will be monitored, managed and treated appropriately. ROMANA KAUR MD DR: PARIS/yared JOB#: [id number] / [id number]
[2019-01-30] MEDS ORDERED: ASPI325T8 PO (12:52)
[2019-01-30] MEDS ORDERED: HYDROcodone/APAP 5/325MG 1 TAB TABLET PO PRN (13:30)
[2019-01-30] MEDS ORDERED: ASPIRIN 325 MG TABLET PO PRN (13:30)
[2019-01-30] MEDS: diazePAM 5 MG TABLET PO SCH ×2 (14:00→22:58)
[2019-01-30] MEDS: LEVOTHYROXINE 75 MCG TABLET PO SCH (14:00)
[2019-01-30 14:37] LABS: BASO # 0.1 x10^3/uL (0.0-0.2); BASO % 1 % (0-3); EOS # 0.1 x10^3/uL (0.0-0.7); EOS % 1 % (0-3); HEMATOCRIT 39.7 % (39.0-53.0); HEMOGLOBIN 12.9 g/dL (13.0-17.5); LYMPH # 1.4 x10^3/uL (1.0-4.8); LYMPH % 14 % (24-48); MEAN CORPUSCULAR HEMOGLOBIN 29 pg (25-35); MEAN CORPUSCULAR HGB CONC 33 g/dL (31-37); MEAN CORPUSCULAR VOLUME 90 fL (79-100); MONO # 0.6 x10^3/uL (0.0-1.1); MONO % 6 % (0-9); NEUT # 7.9 x10^3uL (1.8-7.7); NEUT % 78 % (31-73); PLATELET COUNT 374 x10^3/uL (140-400); RED BLOOD COUNT 4.42 x10^6/uL (4.30-5.70); RED CELL DISTRIBUTION WIDTH 14.8 % (11.5-14.5); WHITE BLOOD COUNT 10.1 x10^3/uL (4.0-11.0)
[2019-01-30 14:42] LABS: ALBUMIN 2.9 g/dL (3.4-5.0); ALBUMIN/GLOBULIN RATIO 0.6 (1.0-1.7); CALCIUM 9.4 mg/dL (8.5-10.1); CREATININE 1.3 mg/dL (0.7-1.3); POTASSIUM 3.7 mmol/L (3.5-5.1); TOTAL BILIRUBIN 0.6 mg/dL (0.2-1.0); TOTAL PROTEIN 7.4 g/dL (6.4-8.2)
[2019-01-30 14:46] LABS: PROTHROMBIN TIME PATIENT 21.3 SEC (11.7-14.0)
[2019-01-30 15:00] VITALS: BP 121/65
[2019-01-30] MEDS: POTASSIUM CL 20MEQ-0.45% NACL 1,000 ML IV SCH ×2 (15:11→22:56)
--- NOTE | 2019-01-30 16:15 | NUR ---
Patient has a direct admit from MD Morro. Patient was able to state name and date only. Patient was lethargic on admit, patients stated that she had given him 3 hydrocodone along with 2 Valium before they arrived to the facility. Patient was also observed to have a bloody nose, stated that it just bleeds. Asked about his multiple bruises if he falls frequency she stated that he does not fall but just bruises easily. then stated he needed more pain medication, educated that since he was already lethargic that I could not give any more pain medication at this time. MD Morro notified.
[2019-01-30 19:00] VITALS: BP 116/60
--- NOTE | 2019-01-30 19:04 | NUR ---
Patient had bright red bloody stools. Page sent to MD Morro in regards. Will continue to monitor patient.
[2019-01-30] MEDS ORDERED: PHYTONADIONE 10 MG/ML AMPUL. SQ ONE (19:15)
[2019-01-30 20:50] VITALS: BP 136/64
[2019-01-30 21:50] VITALS: BP 116/60
[2019-01-30 22:50] VITALS: BP 118/57
[2019-01-30 23:52] VITALS: BP_SYST 117; BP_DIAS 52; BP_DIAS 58
[2019-01-31] VITALS (36 sets, daily range): BP systolic 74–137; BP diastolic 21–88
--- NOTE | 2019-01-31 02:00 | NUR ---
Rapid response called on patient. Patient tried to get out of bed, blood pressure went down to 74/37. One bolus of normal saline given. Blood pressure up to 119/60. Patient has had multiple bloody stools passing multiple clots. Dr. Hooker aware, orders received for blood transfusion. Hgb 9.5 at this time. Received order to re draw hemoglobin, hematocrit and INR upon completion of blood transfusion. Discussed with who is at the bedside. Will continue to monitor.
[2019-01-31 02:25] LABS: HEMATOCRIT 32.3 % (39.0-53.0); HEMOGLOBIN 9.5 g/dL (13.0-17.5)
--- NOTE | 2019-01-31 02:45 | NUR ---
Called to a rapid response on patient for drop in b/p (74/37). B/p when I arrived was 137 systolically. Pt had a large red stool with multiple clots. H&H was done. Hemoglobin on admit was 12.9, now 9.5. Dr. Hooker was called. Orders received for 1uPRBC's with labs to follow. Pt is to stay on the floor until next hemoglobin is back. POC discussed with patient and his . B/p was 119/60 at the end of the rapid response. Addendum: 01/31/19 at 0343 by JESSICA HODGES RN Amended: Links added.
[2019-01-31] MEDS: MORPHINE SULFATE 2 MG/ML VIAL. IV PRN ×4 (03:20→21:25)
[2019-01-31] MEDS: POTASSIUM CL 20MEQ-0.45% NACL 1,000 ML IV SCH ×2 (05:20→13:20)
[2019-01-31] MEDS: LEVOTHYROXINE 75 MCG TABLET PO SCH ×3 (05:38→08:17)
[2019-01-31] MEDS ORDERED: OCTREOTIDE 100 MCG/ML VIAL SQ PRN (08:00)
[2019-01-31] MEDS: diazePAM 5 MG TABLET PO SCH ×4 (08:17→21:09)
--- NOTE | 2019-01-31 08:24 | PDOC2 ---
CONSULT Date of Consult Date of Consult DATE: 01/31/19 TIME: 08:07 Reason for consultation: Neuroendocrine tumor Consult: Hematology oncology, Dr. Liset Oviedo History of present illness: He is a 73-year-old male with neuroendocrine tumor measuring between 10 and 12 cm in the liver on imaging, w/ abdom/pelvic LN mets and poss involvement (plaques, subcm PNs) dating back to last fall, pathology initially was concerning for adenocarcinoma however read at confirmed low metabolic rate neuroendocrine tumor with positive neuroendocrine markers which are also positive in his blood including serotonin and chromogranin A. He seen multiple providers at multiple institutions and therapy has not yet been started but he was admitted due to decline in functional status and desire to get octreotide injections started here promptly. Re: his symptoms he has diarrhea, moderate, intermittent, chronic for years, worsened with recent aspirin use and GI bleed last night causing hypotension and [employer] last night and transfer to the ICU this morning, associated with flushing, and his states he had asthma symptoms in the past but not currently and not using inhaler, and he's also had functional decline with weakness and inability to walk, dehydration requiring IV fluids frequently in the past, and recently left AMA from [facility]. There were plans for Y 90 in September at and he had initial preparation for this but did not obtain it, with notes suggesting concern for radiation. 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, prior tobacco, rare alcohol Family history: Tall height, he is 6'6" Review of systems: Diarrhea, possible flushing, frequent urination in the recent past, about 15 pound weight loss, chest pain for a couple days, bloody nose yesterday, easy bruising, GI bleed last night, mental status changes, combative at times, otherwise 10 point review of systems negative per his Physical exam: Vitals reviewed, hypotension last night improved Gen.: Thin elderly man, difficult to understand, in no acute distress HEENT: mucous membranes dry, head normocephalic atraumatic Neck: Supple, no lymphadenopathy Lymph nodes: No palpable lymphadenopathy neck or axilla Lungs: Breathing comfortably on room air, no evidence of respiratory distress Heart: Regular rate and rhythm Abdomen: Soft, tender diffusely, nondistended, no rebound Extremities: No cyanosis, does have BLE pitting edema Skin: No obvious rashes, does have bruises Neuro: Alert but not oriented 3, answering some ?s but difficult to understand Psych: initially combative mood and frustraed affect until his convinced him to let me examine him Lab reviewed: White count 10.1, hemoglobin 12.9 down to 9.5 with GI bleed, platelets of 374 INR 1.9 Creatinine 1.3 Alkaline phosphatase 239 with normal bili and transaminases Ammonia less than 10 Rads reviewed: Prior CT and ultrasound and MRI and PET scans have shown the liver lesion to be between 10 and 12.9 cm, there is also evidence of subcentimeter pulmonary nodule with PET avid pleural plaquing, possible reactive right hilar lymph node, and bowel involvement with SUVs of 10.6, the liver mass SUV was 12.4 on PET scan in September Case discussed with: Pt, his , his nurse, Dr. Hooker, and records reviewed in [facility] and [employer] including labs and radiology and pathology, please see note for summary details. Assessment and Plan: He is a 73-year-old man with neuroendocrine tumor of the liver with at least lymph node metastasis in the abdominal pelvic region, also with possible pleural involvement, and diarrhea chronically with recent GI bleed. GI bleed: He has received 1 unit of blood, 2 units of FFP, and aspirin has been stopped, would recommend transfusion if hemoglobin less than 7, could consider vitamin K if INR remains elevated after recent FFP, GI has been consulted I believe, can repeat coags and check fibrinogen prn Carcinoid tumor: Low-grade neuroendocrine tumor confirmed by pathology and with his tumor markers in the blood, chromogranin has been 1199 in December and serotonin was 2620 in December, both rising since September, would recommend beginning treatment with long acting octreotide, 20 mg q28 days, we'll try to get this started here and I greatly appreciate pharmacy assistance, have also ordered short acting octreotide 100 g every 6 hours as needed for continued symptoms including diarrhea or flushing or if broncho-constriction developed, will check 24 hour 5 HIAA, and it was recommended for follow-up imaging and echocardiogram though he has had these recently I believe possibly at [facility] and we'll try to get a copy of these records, he did not get Y 90 in September, unsure if his functional status will improve to the point where we could reconsider that but for right now will begin first things first with the octreotide injections. Functional decline: May benefit from rehabilitation versus other? May benefit from palliative care consult though we did not broach the subject today yet Disposition: After continued clinical improvement, in the ICU for now Thank you kindly for this consultation, and please don't hesitate to call with any further questions. Social History ALCOHOL: none Current Medications Current Medications Current Medications Potassium Chloride/Sodium Chloride 1,000 ml @ 125 mls/hr Q8H IV Last administered on 01/30/19at 22:56; Start 01/30/19 at 13:20 Aspirin (Patel Aspirin) 650 mg PRN Q4HRS PRN PO PAIN; Start 01/30/19 at 13:30 Diazepam (Valium) 5 mg TID PO Last administered on 01/30/19at 22:58; Start 01/30/19 at 14:00 Acetaminophen/ Hydrocodone Bitart (Lortab 5/325) 2 tab PRN Q4HRS PRN PO PAIN Last administered on 01/30/19at 18:10; Start 01/30/19 at 13:30 Levothyroxine Sodium (Synthroid) 75 mcg DAILY06 PO ; Start 01/30/19 at 14:00 Phytonadione (Vitamin K Ampule) 10 mg 1X ONCE SQ Last administered on 01/30/19at 22:56; Start 01/30/19 at 19:15; Stop 01/30/19 at 19:16; Status DC Morphine Sulfate (Morphine Sulfate) 2 mg PRN Q2HR PRN IV PAIN Last administered on 01/31/19at 03:20; Start 01/31/19 at 01:30 Active Scripts Active Reported Aspirin 325 Mg Tablet 2 Tab PO PRN Q4HRS PRN Levothyroxine Sodium 75 Mcg Tablet 1 Tab PO DAILY Diazepam 5 Mg Tablet 5 Mg PO TID Rockwell 5-325 Tablet (Acetaminophen/Hydrocodone Bitart) 1 Each Tablet 1-2 Tab PO Q4-6HRS Allergies Allergies: Coded Allergies: oxycodone (Verified Allergy, Intermediate, Unknown, 09/07/18) fentanyl (Verified Adverse Reaction, Mild, Nausea and Vomiting, 09/07/18) Vitals VITALS Vital Signs Date Time Temp Pulse Resp B/P (MAP) Pulse Ox O2 Delivery O2 Flow Rate FiO2 01/31/19 07:28 98.7 97 97/57 98.7 01/31/19 06:12 16 01/31/19 06:06 Room Air 01/31/19 01:40 98 Labs Labs Laboratory Tests Test 01/30/19 14:20 01/31/19 01:49 01/31/19 02:20 White Blood Count 10.1 x10^3/uL (4.0-11.0) Red Blood Count 4.42 x10^6/uL (4.30-5.70) Hemoglobin 12.9 g/dL (13.0-17.5) 9.5 g/dL (13.0-17.5) Hematocrit 39.7 % (39.0-53.0) 32.3 % (39.0-53.0) Mean Corpuscular Volume 90 fL (79-100) Mean Corpuscular Hemoglobin 29 pg (25-35) Mean Corpuscular Hemoglobin Concent 33 g/dL (31-37) 29 g/dL (31-37) Red Cell Distribution Width 14.8 % (11.5-14.5) Platelet Count 374 x10^3/uL (140-400) Neutrophils (%) (Auto) 78 % (31-73) Lymphocytes (%) (Auto) 14 % (24-48) Monocytes (%) (Auto) 6 % (0-9) Eosinophils (%) (Auto) 1 % (0-3) Basophils (%) (Auto) 1 % (0-3) Neutrophils # (Auto) 7.9 x10^3uL (1.8-7.7) Lymphocytes # (Auto) 1.4 x10^3/uL (1.0-4.8) Monocytes # (Auto) 0.6 x10^3/uL (0.0-1.1) Eosinophils # (Auto) 0.1 x10^3/uL (0.0-0.7) Basophils # (Auto) 0.1 x10^3/uL (0.0-0.2) Prothrombin Time 21.3 SEC (11.7-14.0) Prothromb Time International Ratio 1.9 (0.8-1.1) Sodium Level 145 mmol/L (136-145) Potassium Level 3.7 mmol/L (3.5-5.1) Chloride Level 109 mmol/L (98-107) Carbon Dioxide Level 28 mmol/L (21-32) Anion Gap 8 (6-14) Blood Urea Nitrogen 28 mg/dL (8-26) Creatinine 1.3 mg/dL (0.7-1.3) Estimated GFR (Cockcroft-Gault) 54.0 BUN/Creatinine Ratio 22 (6-20) Glucose Level 100 mg/dL (70-99) Calcium Level 9.4 mg/dL (8.5-10.1) Total Bilirubin 0.6 mg/dL (0.2-1.0) Aspartate Amino Transf (AST/SGOT) 20 U/L (15-37) Alanine Aminotransferase (ALT/SGPT) 30 U/L (16-63) Alkaline Phosphatase 239 U/L (46-116) Ammonia < 10 mcmol/L (11-34) Total Protein 7.4 g/dL (6.4-8.2) Albumin 2.9 g/dL (3.4-5.0) Albumin/Globulin Ratio 0.6 (1.0-1.7) Glucose (Fingerstick) 110 mg/dL (70-99) Laboratory Tests Test 01/30/19 14:20 01/31/19 01:49 01/31/19 02:20 White Blood Count 10.1 x10^3/uL (4.0-11.0) Red Blood Count 4.42 x10^6/uL (4.30-5.70) Hemoglobin 12.9 g/dL (13.0-17.5) 9.5 g/dL (13.0-17.5) Hematocrit 39.7 % (39.0-53.0) 32.3 % (39.0-53.0) Mean Corpuscular Volume 90 fL (79-100) Mean Corpuscular Hemoglobin 29 pg (25-35) Mean Corpuscular Hemoglobin Concent 33 g/dL (31-37) 29 g/dL (31-37) Red Cell Distribution Width 14.8 % (11.5-14.5) Platelet Count 374 x10^3/uL (140-400) Neutrophils (%) (Auto) 78 % (31-73) Lymphocytes (%) (Auto) 14 % (24-48) Monocytes (%) (Auto) 6 % (0-9) Eosinophils (%) (Auto) 1 % (0-3) Basophils (%) (Auto) 1 % (0-3) Neutrophils # (Auto) 7.9 x10^3uL (1.8-7.7) Lymphocytes # (Auto) 1.4 x10^3/uL (1.0-4.8) Monocytes # (Auto) 0.6 x10^3/uL (0.0-1.1) Eosinophils # (Auto) 0.1 x10^3/uL (0.0-0.7) Basophils # (Auto) 0.1 x10^3/uL (0.0-0.2) Prothrombin Time 21.3 SEC (11.7-14.0) Prothromb Time International Ratio 1.9 (0.8-1.1) Sodium Level 145 mmol/L (136-145) Potassium Level 3.7 mmol/L (3.5-5.1) Chloride Level 109 mmol/L (98-107) Carbon Dioxide Level 28 mmol/L (21-32) Anion Gap 8 (6-14) Blood Urea Nitrogen 28 mg/dL (8-26) Creatinine 1.3 mg/dL (0.7-1.3) Estimated GFR (Cockcroft-Gault) 54.0 BUN/Creatinine Ratio 22 (6-20) Glucose Level 100 mg/dL (70-99) Calcium Level 9.4 mg/dL (8.5-10.1) Total Bilirubin 0.6 mg/dL (0.2-1.0) Aspartate Amino Transf (AST/SGOT) 20 U/L (15-37) Alanine Aminotransferase (ALT/SGPT) 30 U/L (16-63) Alkaline Phosphatase 239 U/L (46-116) Ammonia < 10 mcmol/L (11-34) Total Protein 7.4 g/dL (6.4-8.2) Albumin 2.9 g/dL (3.4-5.0) Albumin/Globulin Ratio 0.6 (1.0-1.7) Glucose (Fingerstick) 110 mg/dL (70-99) LISET OVIEDO MD January 31, 2019 08:24
--- NOTE | 2019-01-31 09:00 | NUR ---
Patient arrived from [address] [place] [address]. Patient was reported to have hypotension and new gi bleed. Patient was give two units FFP and 1 unit PRBC. Arrived to ICU, vital signs stable, GI consulted, and made aware of clots in stool.
[2019-01-31 09:21] LABS: HEMATOCRIT 27.2 % (39.0-53.0); HEMOGLOBIN 8.9 g/dL (13.0-17.5)
[2019-01-31 09:24] LABS: PROTHROMBIN TIME PATIENT 17.1 SEC (11.7-14.0)
[2019-01-31 09:25] LABS: FIBRINOGEN 356 mg/dL (200-440); PARTIAL THROMBOPLASTIN TIME 36 SEC (24-38)
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
[2019-01-31] MEDS ORDERED: OCTREOTIDE 100 MCG/ML VIAL SQ SCH (10:00)
[2019-01-31] MEDS: OCTREOTIDE 100 MCG/ML VIAL SQ SCH ×3 (10:07→21:27)
[2019-01-31 13:35] LABS: HEMATOCRIT 26.4 % (39.0-53.0); HEMOGLOBIN 8.4 g/dL (13.0-17.5); RED BLOOD COUNT 2.86 x10^6/uL (4.30-5.70); RED CELL DISTRIBUTION WIDTH 15.4 % (11.5-14.5); WHITE BLOOD COUNT 7.2 x10^3/uL (4.0-11.0)
--- NOTE | 2019-01-31 15:29 | RAD ---
Acute abdomen series with chest, 3 views, 01/31/2019: HISTORY: Abdominal pain The abdominal gas pattern is unremarkable without evidence of obstruction. No free air is seen in the abdomen. Radiopacities overlying the upper abdomen near the midline are probably embolization coils. There is no evidence organomegaly. Scattered vascular calcifications are evident. The heart size is normal. The lungs are hyperexpanded suggesting COPD. No pulmonary infiltrate is seen. IMPRESSION: No acute abdominal abnormality is detected. Electronically signed by: Dangelo Armas MD (01/31/2019 3:27 PM) [facility]
--- NOTE | 2019-01-31 18:25 | PN ---
DATE: 01/31/2019 ROOM: 107 ICU. SUBJECTIVE: The patient is awake, alert, is oriented to person, place and time; however, is definitely foggy mentally and not communicating like his normal and his speech is hard to understand, is at bedside. He was transferred to the ICU this morning with ongoing bloody stools with clots, which was not present on admission, but has developed since the admission. OBJECTIVE: VITAL SIGNS: Stable. He is afebrile. Blood pressure did drop around 6:00 this morning into the 90s and he was transferred to the ICU. Currently, blood pressure is in the one-teens with a pulse of 90 and the patient appears comfortable. He is afebrile. CHEST: Clear. HEART: Regular. ABDOMEN: With some minimal left upper quadrant tenderness. He also has a palpable liver from the liver mass. LABORATORY DATA: INR was elevated on admission at 1.9. Once the bleeding started, he has gotten vitamin K and fresh frozen plasma with this morning's INR pending. Initial hemoglobin was 12.9 and this dropped to 9.5 at 02:20 this morning. I elected to start him on blood at that point in time with all the stools and he is receiving his first unit of blood. Chem panel was essentially unremarkable other than alkaline phosphatase of 239 expected from his tumor. Ammonia level was less than 10, so does not explain any confusion. IMPRESSION: 1. Neuroendocrine tumor with marked symptomatology with intermittent diarrhea, flushing, weight loss. 2. Failure to thrive at home including p.o. intake and weakness on admission. 3. Lower gastrointestinal bleed with transfer to ICU status due to hypotension with the same. PLAN: Oncology has started octreotide for management of the neuroendocrine tumor symptoms. He is again receiving his first unit of blood. GI has been consulted with endoscopy planned today. A repeat INR is underway and the patient will be managed and treated appropriately. ROMANA KAUR MD DR: PARIS/yared JOB#: [id number] / [id number]
[2019-01-31 19:18] LABS: HEMATOCRIT 29.2 % (39.0-53.0); HEMOGLOBIN 9.4 g/dL (13.0-17.5)
[2019-02-01] VITALS (12 sets, daily range): BP systolic 92–148; BP diastolic 43–63
[2019-02-01] MEDS: POTASSIUM CL 20MEQ-0.45% NACL 1,000 ML IV SCH ×4 (00:31→22:21)
[2019-02-01] MEDS: MORPHINE SULFATE 2 MG/ML VIAL. IV PRN (04:27)
[2019-02-01] MEDS: OCTREOTIDE 100 MCG/ML VIAL SQ SCH ×4 (04:28→22:21)
[2019-02-01 05:17] LABS: PROTHROMBIN TIME PATIENT 13.1 SEC (11.7-14.0)
--- NOTE | 2019-02-01 08:06 | PDOC ---
SUBJECTIVE Subjective S: no BM since yesterday, started octreotide O: Gen: NAD, tall elderly man resting in bed, sleeping Skin: warm and dry, some LE edema still Labs: coags and fibrinogen and plts nl Hb 9.4 Cr 1.3 Rads: from [facility] obtained, in chart, tumor in liver 11-13 cm on MRI/CT, sev oropharyngeal dysphagia on swallow study and EF 50% on TTE w/ seo eval of diastolic function A/P: He is a 73-year-old man with neuroendocrine tumor of the liver with at least lymph node metastasis in the abdominal pelvic region, also with possible pleural involvement, and diarrhea chronically with recent GI bleed on ASA, ASA has been stopped, and octreotide started 7 January, short acting. GI bleed: He has received 1 unit of blood, 2 units of FFP, and aspirin has been stopped, GI is involved, no BM since yesterday, appears to have stopped... 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 and with his tumor markers in the blood, chromogranin has been 1199 in December and serotonin was 2620 in December, both rising since September, recommended beginning treatment with long acting octreotide, 20 mg q28 days (can start this as soon as outpt, will do short-acting 100 mcg q6h until dc), and it was recommended for follow-up imaging and echocardiogram though he has had these recently at [facility], records in chart, no e/o progression, if functional status improves could re-consider Y 90 vs other, though currently quite weak Functional decline: per primary, his wants to take him home w/ home health... Disposition: After clinical improvement, in the ICU for now Thank you kindly, and please don't hesitate to call with any further questions. OBJECTIVE Vital Signs Vital Signs Date Time Temp Pulse Resp B/P (MAP) Pulse Ox O2 Delivery O2 Flow Rate FiO2 02/01/19 07:00 71 16 102/51 (68) 100 Room Air 02/01/19 06:00 81 16 116/58 (77) 99 Room Air 02/01/19 05:00 82 16 117/55 (75) 99 Room Air 02/01/19 04:57 16 96 Room Air 02/01/19 04:27 22 99 Room Air 02/01/19 04:00 Room Air 02/01/19 04:00 98.8 88 18 101/58 (72) 100 Room Air 98.8 02/01/19 03:00 75 16 121/60 (80) 99 Room Air 02/01/19 02:00 75 16 118/57 (77) 100 Room Air 02/01/19 01:00 69 16 116/60 (78) 100 Room Air 01/31/19 23:59 98.4 71 16 125/59 (81) 100 Room Air 98.4 01/31/19 23:59 Room Air 01/31/19 23:00 77 16 118/56 (76) 100 Room Air 01/31/19 22:00 80 16 120/56 (77) 100 Room Air 01/31/19 21:25 22 96 Room Air 01/31/19 21:00 79 16 114/56 (75) 100 Room Air 01/31/19 20:00 Room Air 01/31/19 20:00 98.6 97 16 131/88 (102) 96 Room Air 98.6 01/31/19 19:00 89 16 126/62 (83) 96 Room Air 01/31/19 18:00 80 16 129/78 (95) Room Air 01/31/19 17:00 76 16 124/55 (78) Room Air 01/31/19 16:00 98.2 76 16 124/61 (82) Room Air 98.2 01/31/19 15:00 94 16 117/57 (77) 97 Room Air 01/31/19 14:05 98.7 84 102/50 (67) 98 Room Air 98.7 01/31/19 13:39 98 Room Air 01/31/19 11:00 84 16 102/50 (67) Room Air 01/31/19 10:00 94 16 105/49 (67) Room Air 01/31/19 09:18 98 Room Air 01/31/19 09:00 92 16 105/48 (67) Room Air 01/31/19 08:47 Room Air 01/31/19 08:00 82 16 125/21 (55) Room Air I & O Intake and Output 02/01/19 07:00 Intake Total 375 ml Output Total 525 ml Balance -150 ml Intake Blood Product IV Normal Saline Flush 375 ml Output Urine Total 525 ml # Bowel Movements 2 COMMENT Lab Laboratory Tests Test 01/31/19 08:50 01/31/19 13:05 01/31/19 19:10 02/01/19 04:45 Hemoglobin 8.9 g/dL (13.0-17.5) 8.4 g/dL (13.0-17.5) 9.4 g/dL (13.0-17.5) Hematocrit 27.2 % (39.0-53.0) 26.4 % (39.0-53.0) 29.2 % (39.0-53.0) Prothrombin Time 17.1 SEC (11.7-14.0) 13.1 SEC (11.7-14.0) Prothromb Time International Ratio 1.4 (0.8-1.1) 1.0 (0.8-1.1) Activated Partial Thromboplast Time 36 SEC (24-38) Fibrinogen 356 mg/dL (200-440) White Blood Count 7.2 x10^3/uL (4.0-11.0) Red Blood Count 2.86 x10^6/uL (4.30-5.70) Mean Corpuscular Volume 92 fL (79-100) Mean Corpuscular Hemoglobin 29 pg (25-35) Mean Corpuscular Hemoglobin Concent 32 g/dL (31-37) 32 g/dL (31-37) Red Cell Distribution Width 15.4 % (11.5-14.5) Platelet Count 269 x10^3/uL (140-400) Nutrition Consultation Dietary Evaluation: Recommendations by RD: Increase Calorie Intake, PPN/TPN Comments: REC PPN for short-term non-oral nutrition needs REC advance diet as able pending NURSING SURGICAL SERVICES DIRECTOR eval and GI status to regular diet Expected Outcomes/Goals: Initiation of nutrition within 24 - 72 hrs Interpretation of weight loss: >10% in 6 months Malnutrition Findings: Food and Nutrition Intake (Mod: <75% est energy req 7days Weight Status: Underweight LISET LUONG MD February 01, 2019 08:06
[2019-02-01] MEDS: PANTOPRAZOLE IV PUSH 40 MG VIAL. IVP SCH (08:40)
--- NOTE | 2019-02-01 09:53 | PDOC ---
Objective: Objective: Reviewed [facility] records - Hgb in 12s, had a lot of imaging - CT chest, CT A/P, abd MRI, and videoswallow showed "severe oropharyngeal dysphagia." No bleeding since yesterday per RN, no family here currently. Plans to pursue SUPERVISOR STONE eval. Still "out of it." Vital Signs: Vital Signs Date Time Temp Pulse Resp B/P (MAP) Pulse Ox O2 Delivery O2 Flow Rate FiO2 02/01/19 08:00 98.4 78 16 96/52 (67) 97 Room Air 98.4 Labs: Laboratory Tests Test 01/31/19 13:05 01/31/19 19:10 02/01/19 04:45 White Blood Count 7.2 x10^3/uL Red Blood Count 2.86 x10^6/uL Hemoglobin 8.4 g/dL 9.4 g/dL Hematocrit 26.4 % 29.2 % Mean Corpuscular Volume 92 fL Mean Corpuscular Hemoglobin 29 pg Mean Corpuscular Hemoglobin Concent 32 g/dL 32 g/dL Red Cell Distribution Width 15.4 % Platelet Count 269 x10^3/uL Prothrombin Time 13.1 SEC Prothromb Time International Ratio 1.0 Imaging: AAS 01/31 IMPRESSION: No acute abdominal abnormality is detected. PE: GEN: NAD - was asleep LUNGS: CTAB HEART: RRR ABD: quiet, soft, non-tender NEURO/PSYCH: eyes flutter open when I touch his abdomen, doesn't speak A/P: Neuroendocrine tumor of liver w/ lymph node mets - on octreotide Hematochezia, anemia - no bleeding since yesterday, Hgb stable Oropharyngeal dysphagia, FTT -- Not sure he'll be able to participate in bedside swallow eval but okay per GI to try. ?palliative discussion... ?SCOTT SHAIKH February 01, 2019 09:53
--- NOTE | 2019-02-01 12:45 | NUR ---
SS following for discharge planning. SS reviewed pt chart. Pt is from home with spouse and is currently on room air. No discharge needs noted at this time. SS will continue to follow for discharge planning.
--- NOTE | 2019-02-01 19:54 | PN ---
DATE: 02/01/2019 LOCATION: He is in room ICU 107. SUBJECTIVE: The patient is more somnolent this morning, difficult to wake and speech remains somewhat garbled. He, however, is aware of his and myself in the room. OBJECTIVE: Vital signs are stable. He is afebrile. He has had no further stools per nursing since yesterday morning. LABORATORY DATA: Hemoglobin went from 8.4 to 9.4 with one unit of blood and will assume that the bleeding is over at this point in time. INR is down to 1.0 this morning. IMPRESSION: 1. Neuroendocrine tumor of the liver, metastatic. 2. Lower gastrointestinal bleed, currently of uncertain etiology, but unsure if colonoscopy is needed or not. We will defer to GI at this point in time. 3. Encephalopathy and weakness with serious concerns of mine with the patient, his could handle him at home and I explained the same to her. She seemed at this point in time to be agreeable to whatever we think is the best route. PLAN: Continue present care including the octreotide. We will recheck a CBC in the morning, hopefully can begin to get him awake and often up and going to look towards some sort of discharge disposition. ROMANA KAUR MD DR: PARIS/yraed JOB#: [id number] / [id number]
[2019-02-02] VITALS (10 sets, daily range): BP systolic 101–127; BP diastolic 48–68
[2019-02-02] MEDS: OCTREOTIDE 100 MCG/ML VIAL SQ SCH ×4 (04:16→21:27)
[2019-02-02] MEDS: MORPHINE SULFATE 2 MG/ML VIAL. IV PRN (04:27)
[2019-02-02] MEDS: POTASSIUM CL 20MEQ-0.45% NACL 1,000 ML IV SCH ×2 (05:20→13:20)
[2019-02-02] MEDS: LEVOTHYROXINE 75 MCG TABLET PO SCH (05:53)
--- NOTE | 2019-02-02 08:14 | NUR ---
SW following Pt. Chart reviewed. Pt transferred from ICU. PT/OT Ordered again and pending. SW will await for PT/OT recommendation to assess skilled needs.
[2019-02-02 09:22] LABS: BASO % 1 % (0-3); EOS % 0 % (0-3); HEMATOCRIT 22.2 % (39.0-53.0); HEMOGLOBIN 7.4 g/dL (13.0-17.5); LYMPH % 21 % (24-48); MEAN CORPUSCULAR HEMOGLOBIN 30 pg (25-35); MEAN CORPUSCULAR HGB CONC 34 g/dL (31-37); MEAN CORPUSCULAR VOLUME 90 fL (79-100); MONO # 0.7 x10^3/uL (0.0-1.1); MONO % 7 % (0-9); NEUT % 71 % (31-73); PLATELET COUNT 270 x10^3/uL (140-400); RED BLOOD COUNT 2.45 x10^6/uL (4.30-5.70); RED CELL DISTRIBUTION WIDTH 15.5 % (11.5-14.5); WHITE BLOOD COUNT 9.8 x10^3/uL (4.0-11.0)
[2019-02-02] MEDS: PANTOPRAZOLE IV PUSH 40 MG VIAL. IVP SCH (09:46)
--- NOTE | 2019-02-02 09:54 | PDOC ---
Objective: Objective: RN received report of "large bloody stool" overnight. Remains on SQ octreotide and IV Protonix. NPO w/ DIRECTOR FUNDS DEVELOPMENT following. Vital Signs: Vital Signs Date Time Temp Pulse Resp B/P (MAP) Pulse Ox O2 Delivery O2 Flow Rate FiO2 02/02/19 08:05 98.8 77 16 101/50 (67) 98 Nasal Cannula 98.8 Labs: Laboratory Tests Test 02/02/19 08:38 White Blood Count 9.8 x10^3/uL Red Blood Count 2.45 x10^6/uL Hemoglobin 7.4 g/dL Hematocrit 22.2 % Mean Corpuscular Volume 90 fL Mean Corpuscular Hemoglobin 30 pg Mean Corpuscular Hemoglobin Concent 34 g/dL Red Cell Distribution Width 15.5 % Platelet Count 270 x10^3/uL Neutrophils (%) (Auto) 71 % Lymphocytes (%) (Auto) 21 % Monocytes (%) (Auto) 7 % Eosinophils (%) (Auto) 0 % Basophils (%) (Auto) 1 % Neutrophils # (Auto) 7.0 x10^3uL Lymphocytes # (Auto) 2.0 x10^3/uL Monocytes # (Auto) 0.7 x10^3/uL Eosinophils # (Auto) 0.0 x10^3/uL Basophils # (Auto) 0.0 x10^3/uL PE: GEN: NAD LUNGS: NC HEART: RRR ABD: NABS, soft, non-tender NEURO/PSYCH: a bit more awake today A/P: Neuroendocrine tumor of liver Hematochezia, anemia - recurred overnight, Hgb now 7.4 H/o oropharyngeal dysphagia -- Family not here. Difficult situation w/ intermittent bleeding, h/o dysphagia, and mental status. Will review w/ Dr. Brand. SCOTT URBINA February 02, 2019 09:54
[2019-02-02] MEDS ORDERED: BARIUM SULFATE 40% (APPLE) 148 GM PWD. PO ONE (10:30)
[2019-02-02] MEDS ORDERED: HEPARIN for NUC MED 500 UNIT/5 ML DISP.SYRIN. IV ONE (11:45)
--- NOTE | 2019-02-02 11:47 | RAD ---
Video dysphasia study, 02/02/2019: History: Dysphasia The swallowing mechanism was examined fluoroscopically in the lateral projection while the patient ingested a variety of materials mixed with barium. 1.4 minutes of fluoroscopy time was utilized. One video fluoroscopic loop was recorded by a member of the speech Department. When ingesting a small amount of honey thickened material there was lack of pharyngeal peristalsis. No epiglottic inversion was evident. There is stasis of the majority of the material in the vallecula and piriform sinuses. When given a small amount of the thin liquid material similar findings were present with deep laryngeal penetration. The study was terminated at this point due to the lack of satisfactory peristaltic activity and extensive stasis of materials with impending aspiration.
[2019-02-02 13:36] LABS: PROTHROMBIN TIME PATIENT 13.3 SEC (11.7-14.0)
--- NOTE | 2019-02-02 15:09 | RAD ---
Radionuclide GI bleeding study, 02/02/2019: HISTORY: Bilateral knees, anemia, dysphasia, neuroendocrine liver tumor The study was performed utilizing 27 mCi of technetium 99m and a labeled red blood cell technique. There is abnormal accumulation of activity in the upper abdomen near the midline, in the left upper quadrant and in the upper pelvis near the midline. This activity changes position with bowel peristalsis. Over time the upper pelvic activity increases and extends superiorly on the left rather than distally into the rectum. The origin of this GI tract bleeding is not entirely clear, however, a small bowel or stomach origin appears most likely. IMPRESSION: Positive radionuclide GI bleeding scan is described above. Note: The findings were given to the patient's nurse on the floor at 3:05 PM on 02/02/2019. Electronically signed by: Dangelo Armas MD (02/02/2019 3:06 PM) [facility]
[2019-02-02] MEDS: AMINO AC 3%/ELECTROLYTE/GLYCER 1,000 ML IV SCH ×2 (15:30→21:28)
[2019-02-02] MEDS ORDERED: IOHEXOL 350 MG/ML 100 ML VIAL. IV ONE (16:15)
--- NOTE | 2019-02-02 16:17 | NUR ---
SW following pt. Attempted to meet with Pt and family regarding SNU but Pt was getting changed by nursing team. Will attempt tomorrow morning.
[2019-02-02] MEDS ORDERED: CONTRAST GIVEN. MC PRN (16:30)
--- NOTE | 2019-02-02 18:48 | PN ---
DATE: 02/02/2019 LOCATION: Room 656. SUBJECTIVE: The patient is much more awake and alert this morning, has some phone numbers on a piece of paper and is trying to figure out how to use the phone to call his . His speech is still a little bit slow and harder to understand, but definitely much more awake and alert. OBJECTIVE: VITAL SIGNS: Stable. He is afebrile. CHEST: Clear. HEART: Regular. ABDOMEN: Stable. Nursing reports another large bloody stool during the night of which I was not notified, but have put in an order for hemoglobin this morning. GI is still following along in case needed. I am going to stop the IV morphine at this point in time as well as the hydrocodone and see if this has any bearing on his mental status as he does tell me this morning he does not have a lot of pain, but some kind of all over. IMPRESSION: 1. Neuroendocrine tumor, metastatic with severe symptomatology. 2. Dehydration, improved. 3. Dysphagia with plan for video swallow today. 4. Hematochezia during the night. 5. Coagulopathy on admission, likely related to liver issues. 6. Encephalopathy, likely combination of illness as well as a possible medication and will limit these as much as possible. PLAN: We will check another hemoglobin this morning. I have discussed with nursing and they will notify GI of the stools. We will recheck another INR this morning in addition. Again, I am going to discontinue pain medicines at this point and will have to call me if he is very uncomfortable for something. Therapy is to start today to evaluate for getting him up and see where appropriate discharge destination might be. ROMANA KAUR MD DR: [place]IS/yared JOB#: [id number] / [id number]
[2019-02-02] MEDS ORDERED: SCOPOLAMINE 1.5MG PATCH. TD SCH (20:15)
[2019-02-03] VITALS (18 sets, daily range): BP systolic 102–139; BP diastolic 49–73
[2019-02-03] MEDS: OCTREOTIDE 100 MCG/ML VIAL SQ SCH ×4 (04:43→21:11)
[2019-02-03] MEDS: LEVOTHYROXINE 75 MCG TABLET PO SCH (04:47)
[2019-02-03 05:16] LABS: BASO % 1 % (0-3); EOS % 1 % (0-3); HEMATOCRIT 24.9 % (39.0-53.0); HEMOGLOBIN 8.5 g/dL (13.0-17.5); LYMPH # 1.5 x10^3/uL (1.0-4.8); LYMPH % 16 % (24-48); MEAN CORPUSCULAR HEMOGLOBIN 31 pg (25-35); MEAN CORPUSCULAR HGB CONC 34 g/dL (31-37); MEAN CORPUSCULAR VOLUME 90 fL (79-100); MONO # 0.7 x10^3/uL (0.0-1.1); MONO % 8 % (0-9); NEUT # 7.3 x10^3uL (1.8-7.7); NEUT % 76 % (31-73); PLATELET COUNT 216 x10^3/uL (140-400); RED BLOOD COUNT 2.77 x10^6/uL (4.30-5.70); RED CELL DISTRIBUTION WIDTH 15.2 % (11.5-14.5); WHITE BLOOD COUNT 9.7 x10^3/uL (4.0-11.0)
[2019-02-03 05:37] LABS: CALCIUM 8.3 mg/dL (8.5-10.1); CREATININE 1.1 mg/dL (0.7-1.3); GFR 65.4; POTASSIUM 4.4 mmol/L (3.5-5.1)
--- NOTE | 2019-02-03 08:41 | PDOC ---
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 Cannot get long acting as inpt. GI bleed: blood produects prn, aspirin has been stopped, GI is involved, CTA pending after rbc scan noted stom/sm bowel likely source of bleed, pending EGD Dysphagia: per GI, primary, severe, limiting nut'n... Carcinoid tumor: Low-grade neuroendocrine tumor confirmed by pathology and with his tumor markers in the blood, chromogranin has been 1199 in December and serotonin was 2620 in December, both rising since September, recommended beginning treatment with long acting octreotide, 20 mg q28 days (can start this as soon as outpt, will do short-acting 100 mcg q6h until dc), and it was recommended for f ollow-up imaging and echocardiogram though he has had these recently at [facility], records in chart, no e/o progression, if functional status improves could re-consider Y 90 vs other, though currently quite weak Functional decline: per primary, his wants to take him home w/ home health...i mentioned pall care, they may be willing to see Ms Shannan soon but did not commit today, she was on phone and a visitor walked in... Disposition: After clinical improvement Thank you kindly, and please don't hesitate to call with any further questions. OBJECTIVE Vital Signs Vital Signs Date Time Temp Pulse Resp B/P (MAP) Pulse Ox O2 Delivery O2 Flow Rate FiO2 02/03/19 07:00 98.2 85 16 102/49 (66) 100 Room Air 98.2 02/03/19 04:02 97.4 69 16 122/58 (79) 98 3.0 97.4 02/02/19 23:36 97.7 78 16 123/68 (86) 97 Nasal Cannula 3.0 97.7 02/02/19 20:00 Room Air 02/02/19 19:33 98.4 64 16 118/53 98.4 02/02/19 18:52 98.3 76 10 113/58 98.3 02/02/19 17:57 98.5 77 12 117/52 98.5 02/02/19 15:52 98.3 82 18 107/53 (71) 99 Nasal Cannula 98.3 02/02/19 13:43 78.0 78 22 120/58 78.0 02/02/19 12:46 97.9 76 12 119/48 97.9 02/02/19 11:04 97.4 75 16 127/58 (81) 98 Nasal Cannula 97.4 I & O Intake and Output 02/03/19 07:00 Intake Total 1083 ml Output Total 4 ml Balance 1079 ml Intake Oral 0 ml Blood Product IV Normal Saline Flush 1083 ml Output Urine Total 2 ml Stool Total 2 ml COMMENT Lab Laboratory Tests Test 02/02/19 08:38 02/02/19 22:15 02/03/19 05:00 White Blood Count 9.8 x10^3/uL (4.0-11.0) 9.7 x10^3/uL (4.0-11.0) Red Blood Count 2.45 x10^6/uL (4.30-5.70) 2.77 x10^6/uL (4.30-5.70) Hemoglobin 7.4 g/dL (13.0-17.5) 9.1 g/dL (13.0-17.5) 8.5 g/dL (13.0-17.5) Hematocrit 22.2 % (39.0-53.0) 24.9 % (39.0-53.0) Mean Corpuscular Volume 90 fL (79-100) 90 fL (79-100) Mean Corpuscular Hemoglobin 30 pg (25-35) 31 pg (25-35) Mean Corpuscular Hemoglobin Concent 34 g/dL (31-37) 34 g/dL (31-37) Red Cell Distribution Width 15.5 % (11.5-14.5) 15.2 % (11.5-14.5) Platelet Count 270 x10^3/uL (140-400) 216 x10^3/uL (140-400) Neutrophils (%) (Auto) 71 % (31-73) 76 % (31-73) Lymphocytes (%) (Auto) 21 % (24-48) 16 % (24-48) Monocytes (%) (Auto) 7 % (0-9) 8 % (0-9) Eosinophils (%) (Auto) 0 % (0-3) 1 % (0-3) Basophils (%) (Auto) 1 % (0-3) 1 % (0-3) Neutrophils # (Auto) 7.0 x10^3uL (1.8-7.7) 7.3 x10^3uL (1.8-7.7) Lymphocytes # (Auto) 2.0 x10^3/uL (1.0-4.8) 1.5 x10^3/uL (1.0-4.8) Monocytes # (Auto) 0.7 x10^3/uL (0.0-1.1) 0.7 x10^3/uL (0.0-1.1) Eosinophils # (Auto) 0.0 x10^3/uL (0.0-0.7) 0.0 x10^3/uL (0.0-0.7) Basophils # (Auto) 0.0 x10^3/uL (0.0-0.2) 0.0 x10^3/uL (0.0-0.2) Prothrombin Time 13.3 SEC (11.7-14.0) Prothromb Time International Ratio 1.0 (0.8-1.1) Sodium Level 140 mmol/L (136-145) Potassium Level 4.4 mmol/L (3.5-5.1) Chloride Level 105 mmol/L (98-107) Carbon Dioxide Level 27 mmol/L (21-32) Anion Gap 8 (6-14) Blood Urea Nitrogen 27 mg/dL (8-26) Creatinine 1.1 mg/dL (0.7-1.3) Estimated GFR (Cockcroft-Gault) 65.4 Glucose Level 123 mg/dL (70-99) Calcium Level 8.3 mg/dL (8.5-10.1) Nutrition Consultation Dietary Evaluation: Recommendations by RD: Increase Calorie Intake, PPN/TPN Comments: REC PPN for short-term non-oral nutrition needs REC advance diet as able pending FAILURE ANALYSIS ENGINEER eval and GI status to regular diet If unsafe for PO diet per FAILURE ANALYSIS ENGINEER, recommend non-oral nutrition support options pending GI status (line placement for TPN if unable to feed gut, PEG placement for tube feeding if ok per GI) Expected Outcomes/Goals: Initiation of nutrition within 24 - 72 hrs - not met, goal ongoing Interpretation of weight loss: >10% in 6 months Malnutrition Findings: Food and Nutrition Intake (Mod: <75% est energy req 7days Weight Status: Underweight LISET LUONG MD February 03, 2019 08:41
[2019-02-03] MEDS: PANTOPRAZOLE IV PUSH 40 MG VIAL. IVP SCH (08:57)
[2019-02-03] MEDS: AMINO AC 3%/ELECTROLYTE/GLYCER 1,000 ML IV SCH ×3 (08:57→23:24)
--- NOTE | 2019-02-03 09:48 | PDOC ---
Objective: Objective: RN received report of bright red stool overnight. Consents signed for EGD. Also says Dr. Hooker said family said they wanted a PEG. D/w Dr. Zhang earlier this morning.\ Transfused 2 units pRBCs yesterday. Vital Signs: Vital Signs Date Time Temp Pulse Resp B/P (MAP) Pulse Ox O2 Delivery O2 Flow Rate FiO2 02/03/19 07:00 98.2 85 16 102/49 (66) 100 Room Air 98.2 02/03/19 04:02 3.0 Labs: Laboratory Tests Test 02/02/19 22:15 02/03/19 05:00 Hemoglobin 9.1 g/dL 8.5 g/dL White Blood Count 9.7 x10^3/uL Red Blood Count 2.77 x10^6/uL Hematocrit 24.9 % Mean Corpuscular Volume 90 fL Mean Corpuscular Hemoglobin 31 pg Mean Corpuscular Hemoglobin Concent 34 g/dL Red Cell Distribution Width 15.2 % Platelet Count 216 x10^3/uL Neutrophils (%) (Auto) 76 % Lymphocytes (%) (Auto) 16 % Monocytes (%) (Auto) 8 % Eosinophils (%) (Auto) 1 % Basophils (%) (Auto) 1 % Neutrophils # (Auto) 7.3 x10^3uL Lymphocytes # (Auto) 1.5 x10^3/uL Monocytes # (Auto) 0.7 x10^3/uL Eosinophils # (Auto) 0.0 x10^3/uL Basophils # (Auto) 0.0 x10^3/uL Sodium Level 140 mmol/L Potassium Level 4.4 mmol/L Chloride Level 105 mmol/L Carbon Dioxide Level 27 mmol/L Anion Gap 8 Blood Urea Nitrogen 27 mg/dL Creatinine 1.1 mg/dL Estimated GFR (Cockcroft-Gault) 65.4 Glucose Level 123 mg/dL Calcium Level 8.3 mg/dL Imaging: CTA 02/02 pending PE: GEN: NAD, calm, alone in room LUNGS: CTAB HEART: RRR ABD: non-tender NEURO/PSYCH: awake, smiling, speech difficult to understand A/P: Carcinoid Hematochezia/melena, anemia, +bleeding scan Dysphagia -- No family present. Awaiting CTA, plans for EGD this afternoon. SCOTT URBINA February 03, 2019 09:48
[2019-02-03] MEDS: IV RINGERS,LACTATED 1000ML 1,000 ML IV SCH ×2 (11:45→21:11)
[2019-02-03] MEDS ORDERED: PROPOFOL 20 ML IV ONE (11:49)
[2019-02-03] MEDS ORDERED: fentaNYL PF VIAL 100 MCG/2 ML VIAL IM ONE (12:00)
--- NOTE | 2019-02-03 12:06 | RAD ---
CT angiography with and without contrast, 02/02/2019 INDICATION: GI bleed, possible upper source including distal stomach versus proximal small bowel COMPARISON STUDY: Tagged red cell scan, earlier same day TECHNIQUE: Multidetector CT imaging of the abdomen and pelvis was obtained before and after the administration of IV contrast. Precontrast, arterial phase, and delayed phase imaging was performed according to the GI bleed protocol. 3-D reconstructions of abdominal vasculature was created on an independent workstation FINDINGS: Evaluation of large bowel is limited by presence of enteric contrast. Arterial phase imaging there is a small blush of contrast in the proximal jejunum (axial image 62). Significant pooling of contrast is not appreciated on the delayed phase imaging. Mild persistence of hyperattenuation this area is seen. Differential considerations include a small bowel carcinoid tumor, given history of metastatic carcinoid tumor involving mesenteric lymph nodes and the liver. A small focus of bleeding is difficult to completely exclude. Given findings of on upper GI scan this lesion cannot be excluded as the source of bleeding. Large tumor in the right liver possibly extending into the left liver is again seen measuring up to 12 cm x 10 cm x 11 cm prior biopsy of this tumor noted. Metastatic mesenteric adenopathy again noted. No bowel obstruction is identified. Previously administered enteric contrast reaches the rectum. Prior coil embolization of what appears to be the gastroduodenal artery and possibly the right gastric artery seen. 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 The left liver is supplied by branches arising from the celiac artery. Left gastric artery appears to arise from the celiac artery. The splenic artery arises from the celiac artery. Gastroduodenal artery being coil occluded is difficult to assess. There is 40 percent narrowing of the superior mesenteric artery. Artery appears otherwise patent. The inferior mesenteric artery demonstrates calcium at its ostium but appears to be otherwise grossly patent. Impression: 1. Blush of contrast in the proximal jejunum which could represent a carcinoid tumor, other small bowel neoplasm, or possibly but less likely a focus of bleeding 2. Large hepatic mass consistent with metastatic carcinoid tumor is previously demonstrated/biopsied 3. Metastatic mesenteric adenopathy Findings discussed with the gastroenterology team at approximately 10:[address] DOSING PQRS STATEMENT: One or more of the following individualized dose reduction techniques were utilized for this examination: 1. Automated exposure control 2. Adjustment of the mA and/or kV according to patient size 3. Use of iterative reconstruction technique Electronically signed by: Carlos Zhang MD (02/03/2019 12:03 PM) [id number]
[2019-02-03] MEDS ORDERED: fentaNYL PF VIAL 100 MCG/2 ML VIAL IV ONE (12:15)
[2019-02-03] MEDS ORDERED: MIDAZOLAM HCL/PF 2 MG/2 ML VIAL. ONE (13:32)
[2019-02-03] MEDS ORDERED: fentaNYL PF VIAL 100 MCG/2 ML VIAL ONE (13:32)
[2019-02-03] MEDS ORDERED: LIDOCAINE WITH 8.4% SOD BICARB 3 ML DISP.SYRIN. ONE (13:40)
[2019-02-03] MEDS ORDERED: HEPARIN for ARTERIAL LINE 1,500 ML ONE (13:41)
[2019-02-03] MEDS ORDERED: IOHEXOL 300 MG/ML 100ML VIAL. ONE (13:41)
--- NOTE | 2019-02-03 13:48 | PDOC4 ---
PROCEDURE Procedure EGD and small bowel enteroscopy recurrent GI bleeding Anesthesia- propofol Findings- esophagus normal, gastritis, erosive with numerous NON bleeding erosions in body and antrum (bx), duodenum normal- using enteroscope, passed into 3rd portion of duodenum- but restrictive - unable to pass scope further- even using stiffening wire/bx forceps etc No bleeding seen, no ulcers, tumors etc seen but DID not reach jejunum Plan- observe- if active bleeding, will defer to IR Dr. Leatha LOPEZ,JOHNNY Quiroz MD February 03, 2019 13:48
[2019-02-03] MEDS ORDERED: IOHEXOL 300 MG/ML 100ML VIAL. IART ONE (14:30)
[2019-02-03] MEDS ORDERED: CONTRAST GIVEN. MC PRN (14:30)
[2019-02-03] MEDS ORDERED: LIDOCAINE WITH 8.4% SOD BICARB 3 ML DISP.SYRIN. IJ ONE (14:30)
--- NOTE | 2019-02-03 14:35 | OP ---
DATE OF SURGERY: 02/03/2019 PROCEDURE: Esophagogastroduodenoscopy and small bowel enteroscopy. PREOPERATIVE DIAGNOSIS: Recurrent gastrointestinal bleeding, possible proximal jejunum based on imaging studies. POSTOPERATIVE DIAGNOSES: Erosive gastritis without bleeding in the antrum and body. No bleeding in the proximal small bowel, but the scope could only pass to the third portion of the duodenum. A preprocedure evaluation and timeout were performed. COMPLICATIONS: None. ESTIMATED BLOOD LOSS: Minimal. SEDATION: Provided by Anesthesia. DESCRPTION OF PROCEDURE: The patient was placed in the left lateral decubitus position and a bite block was inserted. Initially, standard Olympus upper endoscopy scope was utilized, passed through the oropharynx and into the esophagus, stomach and duodenum. The second and third portions of the duodenum and duodenal bulb appeared normal. Then, in the antrum and body, there were erosive changes and gastritis that were not bleeding, but biopsies were obtained to rule out Helicobacter. Body and fundus were otherwise normal. Retroflexed view revealed a normal GE junction and the mucosa throughout the esophagus was normal. The scope was removed and the longer 200 cm small bowel enteroscopy scope was passed through the oropharynx and into the stomach. In an attempt to pass into the small bowel, the scope reached some resistance in approximately the third portion of the duodenum, where we were unable to pass the scope further. We passed a stiffening wire and even a biopsy forceps to allow a stiffer approach, but there was resistance, suggesting some external pressure and the scope just looped in the stomach. External pressure on the stomach was also applied and again with no improvement. The enteroscope, therefore, did not go further than the third portion of the duodenum and no additional lesions were seen. Multiple attempts were performed to try to reach further and were unsuccessful. IMPRESSION: 1. Erosive gastritis, but not bleeding. 2. Normal proximal small bowel, but could not reach the area of interest due to limitations. Even the 200-cm enteroscope could not reach this area due to looping and some restriction on movement of the scope, which may reflect the tumor burden and angulation that was noted on previous imaging. No bleeding source was found. PLAN: This was discussed with Interventional Radiology, Dr. Zhang. We will continue observation and will defer to him on whether other intervention would be appropriate, particularly if he continues to bleed. JOHNNY LOPEZ MD DR: BART/yared JOB#: [id number] / [id number] ALANA
--- NOTE | 2019-02-03 15:24 | PDOC ---
Provider Note Provider Note IR NOTE Celiac, replaced right hepatic off aorta, and SMA angiography performed. No active bleeding or angiographic identification of source. No immediate complication. Continued medical management to maintain normal INR will hopefully allow bleeding to stop. AIDAN TRAORE MD February 03, 2019 15:24
--- NOTE | 2019-02-03 16:19 | NUR ---
SW following pt. SW attempted to reach pt's via phone but phone was not working. SW spoke with pt's son, Jordan, phone: [phone] about dc plan. Discussed about SNU vs HH. Pt's son reported they might take pt home upon dc but will notify SW about decision after discussing with family. HECTOR RN.
--- NOTE | 2019-02-03 22:35 | PN ---
DATE: 02/03/2019 LOCATION: Room 656. 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 is in attendance. He has continued to have bloody stools and has received 2 units of packed red blood cells in the last 24 hours. OBJECTIVE: VITAL SIGNS: Stable. He is afebrile. Again, he is awake and alert. LABORATORY DATA: Hemoglobin this morning is 8.5. It was 7.4 yesterday and he has had 2 units of blood with the ongoing stools. BUN is elevated at 27, creatinine 1.1. INR was repeated yesterday and was within normal limits at 1. The patient had bleeding scan done yesterday showing likely stomach or small bowel source. A CTA of the abdomen and pelvis was also done without results available to this point in time. He remains profoundly dysphagic with a video swallow yesterday showing severe problems with the same and has been discussed in detail with his of a feeding tube, which he is agreeable. GI is planning an EGD today and it would be preferable that they do a PEG tube if possible at the same time. IMPRESSION: 1. Neuroendocrine tumor metastatic with severe symptomatology actually with some improvement. 2. Dehydration, improved. 3. Dysphagia with hopefully the PEG tube placement today. 4. Ongoing hematochezia, likely related to gastrointestinal involvement of the neuroendocrine tumor. 5. Coagulopathy, on admission, resolved. 6. Encephalopathy, improving. PLAN: Continue to follow H's and H's. GI is on board, would expect either intervention or GI, hopefully, to try to control bleeding today. Hopefully, PEG tube placement and otherwise same with ongoing therapy. The patient is definitely stronger, this morning was able to sit up in the bed by himself and tried to stand, which is much better where he has been in the last several days. He was able to tolerate physical therapy yesterday with [facility] being the recommendation for ongoing therapy at the time of discharge. ROMANA KAUR MD DR: PARIS/yared JOB#: [id number] / [id number]
[2019-02-04] MEDS: OCTREOTIDE 100 MCG/ML VIAL SQ SCH ×4 (03:02→16:34)
[2019-02-04 03:40] VITALS: BP 121/53
[2019-02-04 03:52] LABS: BASO % 0 % (0-3); EOS # 0.1 x10^3/uL (0.0-0.7); EOS % 1 % (0-3); HEMATOCRIT 25.5 % (39.0-53.0); HEMOGLOBIN 8.4 g/dL (13.0-17.5); LYMPH # 1.4 x10^3/uL (1.0-4.8); LYMPH % 12 % (24-48); MEAN CORPUSCULAR HEMOGLOBIN 30 pg (25-35); MEAN CORPUSCULAR HGB CONC 33 g/dL (31-37); MEAN CORPUSCULAR VOLUME 92 fL (79-100); MONO # 0.7 x10^3/uL (0.0-1.1); MONO % 6 % (0-9); NEUT # 9.4 x10^3uL (1.8-7.7); NEUT % 80 % (31-73); PLATELET COUNT 220 x10^3/uL (140-400); RED BLOOD COUNT 2.78 x10^6/uL (4.30-5.70); RED CELL DISTRIBUTION WIDTH 15.6 % (11.5-14.5); WHITE BLOOD COUNT 11.7 x10^3/uL (4.0-11.0)
[2019-02-04] MEDS: LEVOTHYROXINE 75 MCG TABLET PO SCH (04:45)
[2019-02-04 07:01] VITALS: BP 125/60
[2019-02-04] MEDS: IV RINGERS,LACTATED 1000ML 1,000 ML IV SCH ×3 (07:45→23:00)
[2019-02-04] MEDS: PANTOPRAZOLE IV PUSH 40 MG VIAL. IVP SCH (08:51)
[2019-02-04] MEDS: AMINO AC 3%/ELECTROLYTE/GLYCER 1,000 ML IV SCH ×3 (08:51→23:00)
--- NOTE | 2019-02-04 10:59 | PDOC ---
Provider Note Provider Note vss, bp ok, remains confused, lethargic, chewing on socks- exam nonfocal - source of agitation not clear- will dc scopalamine, add low dose loraz, follow - d/w family code status, will decide when she arrives if she still wants full code as family state pt has wanted dnr in past- NEEDS TO BE IN HOSPITAL ITA THOMPSON MD February 04, 2019 10:59
[2019-02-04 11:27] VITALS: BP 111/59
[2019-02-04] MEDS: ACETAMINOPHEN 650 MG SUPP.RECT. PR PRN ×2 (13:33→20:38)
[2019-02-04 15:05] VITALS: BP 127/63
--- NOTE | 2019-02-04 17:03 | PDOC ---
GI PROGRESS NOTES Date Date/Time DATE: 02/04/19 TIME: 16:55 Subjective Subjective Pending. PPN running effectively. Hemoglobin is stable from yesterday. EGD and small bowel enteroscopy did not reveal obvious source for bleeding. Several small nonbleeding gastric ulcers were noted. IR consulted and aware. They reviewed the CTA but did not feel angiography would be effective since the bleeding appears to have slowed or stopped. Also his case is complicated by likely numerous small bowel sources with his history of carcinoid with metastatic disease. PEG tube was trimmed by Dr. Hooker in the record but we did not approach that issue yesterday since our planned evaluation was to identify this bleeding source. Objective Vitals Vital Signs Date Time Temp Pulse Resp B/P (MAP) Pulse Ox O2 Delivery O2 Flow Rate FiO2 02/04/19 15:05 98.1 73 14 127/63 (84) 92 Room Air 98.1 02/04/19 11:27 98.6 72 16 111/59 (76) 93 Room Air 98.6 02/04/19 08:00 Room Air 02/04/19 07:01 97.6 75 18 125/60 (81) 98 Room Air 97.6 02/04/19 03:40 98.1 74 18 121/53 (75) 98 Room Air 98.1 02/03/19 23:18 98.1 79 18 129/60 (83) 94 Room Air 98.1 02/03/19 22:00 74 129/60 (83) 02/03/19 21:00 108 134/60 (84) 02/03/19 20:00 Nasal Cannula 3.0 02/03/19 19:34 72 21 139/62 (87) 98 Nasal Cannula 3.0 02/03/19 19:33 98.2 75 18 122/59 (80) 99 Nasal Cannula 2.0 98.2 02/03/19 19:00 72 122/59 (80) 98 Nasal Cannula 3.0 02/03/19 18:00 74 134/67 (89) 98 Nasal Cannula 3.0 02/03/19 17:30 66 126/73 (90) 98 Nasal Cannula 3.0 02/03/19 17:00 68 114/55 (74) 98 Nasal Cannula 3.0 Labs Labs Laboratory Tests Test 02/04/19 03:30 02/04/19 12:30 White Blood Count 11.7 x10^3/uL (4.0-11.0) Red Blood Count 2.78 x10^6/uL (4.30-5.70) Hemoglobin 8.4 g/dL (13.0-17.5) Hematocrit 25.5 % (39.0-53.0) Mean Corpuscular Volume 92 fL (79-100) Mean Corpuscular Hemoglobin 30 pg (25-35) Mean Corpuscular Hemoglobin Concent 33 g/dL (31-37) Red Cell Distribution Width 15.6 % (11.5-14.5) Platelet Count 220 x10^3/uL (140-400) Neutrophils (%) (Auto) 80 % (31-73) Lymphocytes (%) (Auto) 12 % (24-48) Monocytes (%) (Auto) 6 % (0-9) Eosinophils (%) (Auto) 1 % (0-3) Basophils (%) (Auto) 0 % (0-3) Neutrophils # (Auto) 9.4 x10^3uL (1.8-7.7) Lymphocytes # (Auto) 1.4 x10^3/uL (1.0-4.8) Monocytes # (Auto) 0.7 x10^3/uL (0.0-1.1) Eosinophils # (Auto) 0.1 x10^3/uL (0.0-0.7) Basophils # (Auto) 0.0 x10^3/uL (0.0-0.2) Ammonia < 10 mcmol/L (11-34) Physical Exam Physical Exam Sleeping Chest clear Abdomen soft nontender Assessment Assessment Recurrent GI bleed. No clear source but bleeding scan and CTA to suggest a small bowel origin. 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 However other possibilities including AVMs, ulcerations etc. are also possible- fortunately at this point his bleeding appears to have slowed or stopped. His hemoglobin is more stable. If recurrent bleeding occurs I would recommend repeat imaging studies and deferred to IR since technically we were unable to pass the small bowel enteroscope into the jejunum. Small nonbleeding gastric ulcers. Continue Protonix Metastatic carcinoid tumor. Malnutrition- on PPN presently. Dysphagia. He has an abnormal swallow evaluation. There has been discussion of PEG tube. At this point I believe this s is elective and should be discussed in the setting of whether palliative care is more appropriate, however if all are agreeable, we can attempt placement of PEG tube next week. JOHNNY LOPEZ MD February 04, 2019 17:03
[2019-02-04 18:48] VITALS: BP 124/60
[2019-02-04 23:30] VITALS: BP 109/63
[2019-02-05 04:32] VITALS: BP 118/60
[2019-02-05] MEDS: OCTREOTIDE 100 MCG/ML VIAL SQ SCH ×4 (04:39→22:55)
[2019-02-05] MEDS: LEVOTHYROXINE 75 MCG TABLET PO SCH (04:39)
[2019-02-05 07:00] VITALS: BP 125/63
[2019-02-05] MEDS: AMINO AC 3%/ELECTROLYTE/GLYCER 1,000 ML IV SCH ×3 (07:43→23:30)
[2019-02-05] MEDS: PANTOPRAZOLE IV PUSH 40 MG VIAL. IVP SCH (07:44)
--- NOTE | 2019-02-05 08:55 | PDOC ---
Provider Note Provider Note more alert, knows pmc, not year- exam same , vss, pulse ok- NH3 ok, will repeat cbc re anemia/bleed- still npo, procalamine- no new meds, still iv protonix re recent bleed ITA THOMPSON MD February 05, 2019 08:55
[2019-02-05 09:33] LABS: BASO % 1 % (0-3); EOS # 0.1 x10^3/uL (0.0-0.7); EOS % 1 % (0-3); HEMATOCRIT 27.3 % (39.0-53.0); LYMPH # 1.6 x10^3/uL (1.0-4.8); LYMPH % 22 % (24-48); MEAN CORPUSCULAR HEMOGLOBIN 31 pg (25-35); MEAN CORPUSCULAR HGB CONC 33 g/dL (31-37); MEAN CORPUSCULAR VOLUME 93 fL (79-100); MONO # 0.6 x10^3/uL (0.0-1.1); MONO % 8 % (0-9); NEUT # 4.9 x10^3uL (1.8-7.7); NEUT % 68 % (31-73); PLATELET COUNT 226 x10^3/uL (140-400); RED BLOOD COUNT 2.95 x10^6/uL (4.30-5.70); RED CELL DISTRIBUTION WIDTH 16.1 % (11.5-14.5); WHITE BLOOD COUNT 7.2 x10^3/uL (4.0-11.0)
--- NOTE | 2019-02-05 11:19 | PDOC ---
GI PROGRESS NOTES Date Date/Time DATE: 02/05/19 TIME: 11:15 Subjective Subjective More alert today. Still confused. Objective Vitals Vital Signs Date Time Temp Pulse Resp B/P (MAP) Pulse Ox O2 Delivery O2 Flow Rate FiO2 02/05/19 08:00 Room Air 02/05/19 07:00 98.7 74 16 125/63 (83) 93 Room Air 98.7 02/05/19 04:32 98.4 75 18 118/60 (79) 94 Room Air 98.4 02/04/19 23:30 97.3 69 18 109/63 (78) 96 Room Air 97.3 02/04/19 20:00 Room Air 02/04/19 18:48 98.2 62 18 124/60 (81) 91 Room Air 98.2 02/04/19 15:05 98.1 73 14 127/63 (84) 92 Room Air 98.1 02/04/19 11:27 98.6 72 16 111/59 (76) 93 Room Air 98.6 Labs Labs Laboratory Tests Test 02/04/19 12:30 02/05/19 09:00 Ammonia < 10 mcmol/L (11-34) White Blood Count 7.2 x10^3/uL (4.0-11.0) Red Blood Count 2.95 x10^6/uL (4.30-5.70) Hemoglobin 9.0 g/dL (13.0-17.5) Hematocrit 27.3 % (39.0-53.0) Mean Corpuscular Volume 93 fL (79-100) Mean Corpuscular Hemoglobin 31 pg (25-35) Mean Corpuscular Hemoglobin Concent 33 g/dL (31-37) Red Cell Distribution Width 16.1 % (11.5-14.5) Platelet Count 226 x10^3/uL (140-400) Neutrophils (%) (Auto) 68 % (31-73) Lymphocytes (%) (Auto) 22 % (24-48) Monocytes (%) (Auto) 8 % (0-9) Eosinophils (%) (Auto) 1 % (0-3) Basophils (%) (Auto) 1 % (0-3) Neutrophils # (Auto) 4.9 x10^3uL (1.8-7.7) Lymphocytes # (Auto) 1.6 x10^3/uL (1.0-4.8) Monocytes # (Auto) 0.6 x10^3/uL (0.0-1.1) Eosinophils # (Auto) 0.1 x10^3/uL (0.0-0.7) Basophils # (Auto) 0.0 x10^3/uL (0.0-0.2) Physical Exam Physical Exam Chest clear Abdomen soft nontender Assessment Assessment Recurrent GI bleed. fortunately at this point his bleeding appears to have stopped. His hemoglobin is more stable.No clear source but bleeding scan and CTA to suggest a small bowel origin. 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 However other possibilities including AVMs, ulcerations etc. are also possible- If recurrent bleeding occurs I would recommend repeat imaging studies and defer to IR since technically we were unable to pass the small bowel enteroscope into the jejunum. Small nonbleeding gastric ulcers. Continue Protonix Metastatic carcinoid tumor. Malnutrition- on PPN presently. Dysphagia. He has an abnormal swallow evaluation. There has been discussion of PEG tube. At this point I believe this should be discussed in the setting of whether palliative care is more appropriate. However if all are agreeable, we can attempt placement of PEG tube next week- will defer to Dr. Hooker on this issue. JOHNNY LOPEZ MD February 05, 2019 11:19
[2019-02-05 12:00] VITALS: BP 125/63
[2019-02-05] MEDS: IV RINGERS,LACTATED 1000ML 1,000 ML IV SCH ×2 (12:38→23:36)
[2019-02-05 16:00] VITALS: BP 109/57
[2019-02-05] MEDS: ACETAMINOPHEN 650 MG SUPP.RECT. PR PRN (17:39)
[2019-02-05 20:03] VITALS: BP 132/68
[2019-02-05 22:48] VITALS: BP 126/60
[2019-02-06 02:56] VITALS: BP 132/69
[2019-02-06] MEDS: AMINO AC 3%/ELECTROLYTE/GLYCER 1,000 ML IV SCH ×4 (03:07→21:33)
[2019-02-06] MEDS: OCTREOTIDE 100 MCG/ML VIAL SQ SCH ×4 (04:20→21:32)
[2019-02-06] MEDS: LEVOTHYROXINE 75 MCG TABLET PO SCH (04:20)
[2019-02-06 07:26] VITALS: BP 114/67
--- NOTE | 2019-02-06 07:43 | PDOC ---
GI PROGRESS NOTES Date Date/Time DATE: 02/06/19 TIME: 07:39 Subjective Subjective More awake and lucid today than on any prior day this week. In discussions regarding gastrostomy tube placement for oropharyngeal dysphagia, he is against tube placement at this time. Objective Vitals Vital Signs Date Time Temp Pulse Resp B/P (MAP) Pulse Ox O2 Delivery O2 Flow Rate FiO2 02/06/19 07:26 98.7 82 18 114/67 (83) 95 Room Air 98.7 02/06/19 02:56 98.4 79 18 132/69 (90) 96 Room Air 98.4 02/05/19 22:48 98.5 80 18 126/60 (82) 93 Room Air 98.5 02/05/19 20:03 97.9 88 18 132/68 (89) 92 Room Air 97.9 02/05/19 19:47 Room Air 02/05/19 16:00 97.9 88 16 109/57 (74) 100 Room Air 97.9 02/05/19 12:00 98.7 74 125/63 (83) 93 Room Air 98.7 02/05/19 08:00 Room Air Labs Labs Laboratory Tests Test 02/05/19 09:00 White Blood Count 7.2 x10^3/uL (4.0-11.0) Red Blood Count 2.95 x10^6/uL (4.30-5.70) Hemoglobin 9.0 g/dL (13.0-17.5) Hematocrit 27.3 % (39.0-53.0) Mean Corpuscular Volume 93 fL (79-100) Mean Corpuscular Hemoglobin 31 pg (25-35) Mean Corpuscular Hemoglobin Concent 33 g/dL (31-37) Red Cell Distribution Width 16.1 % (11.5-14.5) Platelet Count 226 x10^3/uL (140-400) Neutrophils (%) (Auto) 68 % (31-73) Lymphocytes (%) (Auto) 22 % (24-48) Monocytes (%) (Auto) 8 % (0-9) Eosinophils (%) (Auto) 1 % (0-3) Basophils (%) (Auto) 1 % (0-3) Neutrophils # (Auto) 4.9 x10^3uL (1.8-7.7) Lymphocytes # (Auto) 1.6 x10^3/uL (1.0-4.8) Monocytes # (Auto) 0.6 x10^3/uL (0.0-1.1) Eosinophils # (Auto) 0.1 x10^3/uL (0.0-0.7) Basophils # (Auto) 0.0 x10^3/uL (0.0-0.2) Physical Exam Physical Exam more awake today Chest clear Abdomen soft nontender Assessment Assessment Malnutrition- on PPN presently. Dysphagia. He has an abnormal swallow evaluation. There has been discussion of PEG tube but now that the patient is more awake, he relates he does not want tube. At this point I believe this should be decision made by Dr. Hooker, family and patient while continuing speech path evaluation. However if all are agreeable, we can attempt placement of PEG tube in next few days- will defer t o Dr. Hooker on this issue. Recurrent GI bleed. fortunately at this point his bleeding appears to have stopped. His hemoglobin is more stable.No clear source but bleeding scan and CTA to suggest a small bowel origin. 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 However other possibilities including AVMs, ulcerations etc. are also possible- If recurrent bleeding occurs I would recommend repeat imaging studies and defer to IR since technically we were unable to pass the small bowel enteroscope into the jejunum. Small nonbleeding gastric ulcers. Continue Protonix Metastatic carcinoid tumor. JOHNNY LOPEZ MD February 06, 2019 07:43
--- NOTE | 2019-02-06 08:56 | PDOC ---
SUBJECTIVE Subjective S: much better, speaking to me clearly, much more alert O: Gen: NAD, tall elderly man resting in bed, NAD Neuro: alert, answering questions Psych: pleasant mood and affect Labs: Hb 9.0 Rads: from 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 Cannot get long acting as inpt. has had EGD and IR eval, if rebleed consider repeat IR eval. GI bleed: avoid ASA, GI is involved Dysphagia: he tells me today he would agree to a PEG tube Carcinoid tumor: Low-grade neuroendocrine tumor confirmed by pathology and with his tumor markers in the blood, chromogranin has been 1199 in December and serotonin was 2620 in December, both rising since September, recommended beginning treatment with long acting octreotide, 20 mg q28 days (can start this as soon as outpt, will do short-acting 100 mcg q6h until dc), and it was recommended for follow-up imaging and echocardiogram though he has had these recently at [facility], records in chart, no e/o progression, if functional status improves could re-consider Y 90 vs other, though currently quite weak Functional decline: need rehab? Disposition: After clinical improvement, we'll f/u prn to schedule long-acting octreotide after dc Thank you kindly, and please don't hesitate to call with any further questions. OBJECTIVE Vital Signs Vital Signs Date Time Temp Pulse Resp B/P (MAP) Pulse Ox O2 Delivery O2 Flow Rate FiO2 02/06/19 07:26 98.7 82 18 114/67 (83) 95 Room Air 98.7 02/06/19 02:56 98.4 79 18 132/69 (90) 96 Room Air 98.4 02/05/19 22:48 98.5 80 18 126/60 (82) 93 Room Air 98.5 02/05/19 20:03 97.9 88 18 132/68 (89) 92 Room Air 97.9 02/05/19 19:47 Room Air 02/05/19 16:00 97.9 88 16 109/57 (74) 100 Room Air 97.9 02/05/19 12:00 98.7 74 125/63 (83) 93 Room Air 98.7 I & O Intake and Output 02/06/19 07:00 Intake Total 1145 ml Balance 1145 ml Intake Oral 0 ml IV Total 1000 ml Blood Product IV Normal Saline Flush 145 ml # Voids 4 COMMENT Lab Laboratory Tests Test 02/05/19 09:00 White Blood Count 7.2 x10^3/uL (4.0-11.0) Red Blood Count 2.95 x10^6/uL (4.30-5.70) Hemoglobin 9.0 g/dL (13.0-17.5) Hematocrit 27.3 % (39.0-53.0) Mean Corpuscular Volume 93 fL (79-100) Mean Corpuscular Hemoglobin 31 pg (25-35) Mean Corpuscular Hemoglobin Concent 33 g/dL (31-37) Red Cell Distribution Width 16.1 % (11.5-14.5) Platelet Count 226 x10^3/uL (140-400) Neutrophils (%) (Auto) 68 % (31-73) Lymphocytes (%) (Auto) 22 % (24-48) Monocytes (%) (Auto) 8 % (0-9) Eosinophils (%) (Auto) 1 % (0-3) Basophils (%) (Auto) 1 % (0-3) Neutrophils # (Auto) 4.9 x10^3uL (1.8-7.7) Lymphocytes # (Auto) 1.6 x10^3/uL (1.0-4.8) Monocytes # (Auto) 0.6 x10^3/uL (0.0-1.1) Eosinophils # (Auto) 0.1 x10^3/uL (0.0-0.7) Basophils # (Auto) 0.0 x10^3/uL (0.0-0.2) Nutrition Consultation Dietary Evaluation: Recommendations by RD: PPN/TPN Comments: REC continue PPN for short-term non-oral nutrition needs REC advance diet as able pending BRANCH [employer]OLLER eval and GI status to regular diet If unsafe for PO diet per BRANCH CONTRO[employer]ER, recommend non-oral nutrition support options pending GI status (line placement for TPN if unable to feed gut, PEG placement for tube feeding if ok per GI) Expected Outcomes/Goals: nutrition goals pending plan of care Interpretation of weight loss: >10% in 6 months Malnutrition Findings: Food and Nutrition Intake (Mod: <75% est energy req 7days Weight Status: Underweight LISET LUONG MD February 06, 2019 08:56
[2019-02-06] MEDS: PANTOPRAZOLE IV PUSH 40 MG VIAL. IVP SCH (09:19)
[2019-02-06] MEDS: IV RINGERS,LACTATED 1000ML 1,000 ML IV SCH ×2 (09:45→19:45)
[2019-02-06 10:45] VITALS: BP 122/50
[2019-02-06] MEDS: ACETAMINOPHEN 650 MG SUPP.RECT. PR PRN (13:07)
--- NOTE | 2019-02-06 14:04 | NUR ---
SS following up with discharge planning. PT recommending jail at discharge. Per pt's RN pt getting Peg Tube placed on 02/07/2019. SS met with pt and pt's spouse, Salome, in room. As observed, pt was sleeping. Pt's spouse agreeable to jail unit at discharge and requested referral be phoned and faxed to [facility], ; fax [phone]. SS will await acceptance decision and will proceed accordingly.
--- NOTE | 2019-02-06 14:06 | PATHOLOGY ---
[facility] Accession Number: [id number] . 01 Material submitted: . stomach - ANTRUM . 01 Clinical history: . Pre-OP DX: GI bleed Post-OP DX: Gastritis, rule out H. pylori . 02 Diagnosis: Gastric biopsies, antrum: - Very mild chronic gastritis. (JPM:knitting tester; 02/06/2019) MBR/02/06/2019 . 02 Comment: Sections of the gastric biopsy reveal gastric antral/body transition mucosa showing congestion and very mild chronic inflammation. A properly controlled immunoperoxidase stain for Helicobacter is negative for Helicobacter organisms. There is no evidence of malignancy. (JPM:knitting tester; 02/06/2019) . Special stain performed: Immunoperoxidase stain for Helicobacter . 02 Electronically signed: . David Mejia MD, Pathologist NPI- [id number] . 01 Gross description: . Received in formalin labeled "[place], Herbert, antrum," are 2 segments of rosales soft tissue measuring 0.8 x 0.2 x 0.1 cm in aggregate dimensions and ranging from 0.3 to 0.5 cm in maximum dimension. The specimen is submitted entirely in cassette A1. (TSD; 02/03/2019) TOB/TOB . 02 Pathologist provided ICD-10: K29.50 . 02 CPT . 308718, D14426 Specimen Comment: A courtesy copy of this report has been sent to Specimen Comment: [phone]. Specimen Comment: Report sent to DR LOPEZ Specimen Comment: A duplicate report has been generated due to demographic updates. Performed at: [address], [place], [place] [id number] MD Marcelino Harper MD Phone: [phone] Performed at: 02 [facility] [address] [place], [place] [id number] MD David Mejia MD Phone: [phone]
--- NOTE | 2019-02-06 14:31 | RAD ---
5.10.19 1. Selective celiac artery angiography 2. Selective angiography right hepatic artery arising directly from the aorta 3. Selective angiography superior mesenteric artery 4. Selective angiography of second order left hepatic artery Indication: Gastrointestinal hemorrhage, possibly proximal small bowel. Upper endoscopy negative. Tachycardia positive tagged red blood cell scan suggesting possible proximal small bowel bleed. Discussion: The risks and benefits of the procedure were discussed with the patient and his . Informed consent was obtained. A timeout procedure was performed. The right groin prepped and draped using sterile barrier technique. All elements of maximal sterile barrier technique including the use of a cap, mask, sterile gown, sterile gloves, large sterile sheet, appropriate hand hygiene, and 2% chlorhexidine for cutaneous antisepsis (or acceptable alternative antiseptic per current guidelines) were followed for this procedure. 1% lidocaine was administered for local anesthesia. The right common femoral artery was accessed using a combination of fluoroscopic ultrasound guidance. Reference ultrasound and fluoroscopy images were saved the medical record. 5 Chinese vascular sheath was placed. A Runnit Omni catheter was advanced into the celiac artery. Angiography was performed. A Cobra 2 catheter was in advanced into the left hepatic artery. Selective angiography was performed. No active extravasation or bleeding is identified. No aneurysm or pseudoaneurysm was seen. Coils presumably in the right gastric artery and artery supplying the duodenum noted. The sheath was removed. A Mynx device was deployed to achieve hemostasis. Sterile dressings were applied. Total fluoroscopy time: 7.6 minutes Dose area product:196 Gycm2 Anesthesia: Local Impression: Mesenteric angiography demonstrates no active extravasation or angiographic evidence of ongoing GI bleed.
[2019-02-06 14:41] VITALS: BP 108/75
[2019-02-06 19:23] VITALS: BP 120/54
--- NOTE | 2019-02-06 22:11 | PN ---
DATE: 02/06/2019 LOCATION: Room 252 SUBJECTIVE: The patient is awake, alert and almost back to normal baseline mental status today. I had a long discussion with the patient who wants to proceed with feeding tubes if that is what it takes to get him better to where he can function once again. I have discussed the same with nursing. They were relayed to GI on their visit today. OBJECTIVE: VITAL SIGNS: Stable. He is afebrile. There is no report of any further GI bleeding. CHEST: Clear. HEART: Regular. ABDOMEN: Benign. He does have some upper airway mucus due to his dysphagia. EGD done on Wednesday showed no findings for the bleeding might be as far as they could get. IMPRESSION: 1. Metastatic neuroendocrine tumor with liver involvement. 2. Dysphagia. 3. Malnutrition, on TPN. 4. Gastrointestinal bleeding, currently without bleeding. PLAN: PEG tube placement this week with an eye towards discharge to some sort of rehab type facility. At the time of discharge, I will check another CBC in the morning as there is no one available yet today. ROMANA KAUR MD DR: PARIS/yared JOB#: [id number] / [id number]
[2019-02-06 22:23] VITALS: BP 119/61
[2019-02-07] VITALS (13 sets, daily range): BP systolic 108–141; BP diastolic 55–71
[2019-02-07] MEDS: AMINO AC 3%/ELECTROLYTE/GLYCER 1,000 ML IV SCH ×3 (03:24→23:30)
[2019-02-07] MEDS: OCTREOTIDE 100 MCG/ML VIAL SQ SCH ×4 (03:24→21:37)
[2019-02-07] MEDS: IV RINGERS,LACTATED 1000ML 1,000 ML IV SCH ×2 (03:24→15:45)
[2019-02-07] MEDS: LEVOTHYROXINE 75 MCG TABLET PO SCH (03:30)
[2019-02-07 04:38] LABS: BASO # 0.1 x10^3/uL (0.0-0.2); BASO % 1 % (0-3); EOS # 0.1 x10^3/uL (0.0-0.7); EOS % 2 % (0-3); HEMOGLOBIN 8.9 g/dL (13.0-17.5); LYMPH # 1.3 x10^3/uL (1.0-4.8); LYMPH % 21 % (24-48); MEAN CORPUSCULAR HEMOGLOBIN 30 pg (25-35); MEAN CORPUSCULAR HGB CONC 33 g/dL (31-37); MEAN CORPUSCULAR VOLUME 92 fL (79-100); MONO # 0.5 x10^3/uL (0.0-1.1); MONO % 9 % (0-9); NEUT # 4.1 x10^3uL (1.8-7.7); NEUT % 68 % (31-73); PLATELET COUNT 254 x10^3/uL (140-400); RED BLOOD COUNT 2.93 x10^6/uL (4.30-5.70); RED CELL DISTRIBUTION WIDTH 16.9 % (11.5-14.5)
[2019-02-07 04:40] LABS: PROTHROMBIN TIME PATIENT 12.9 SEC (11.7-14.0)
[2019-02-07] MEDS ORDERED: ONDANSETRON PF 4 MG/2 ML VIAL. IV PRN (07:00)
[2019-02-07] MEDS ORDERED: LIDOCAINE 1% PF 2 ML VIAL. ID PRN (07:00)
[2019-02-07] MEDS ORDERED: IV RINGERS,LACTATED 1000ML 1,000 ML IV SCH (07:00)
[2019-02-07] MEDS ORDERED: PROCHLORPERAZINE 10 MG/2 ML VIAL. IV PRN (07:00)
[2019-02-07] MEDS: PANTOPRAZOLE IV PUSH 40 MG VIAL. IVP SCH (08:21)
--- NOTE | 2019-02-07 08:34 | PDOC ---
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 Cannot get long acting as inpt. has had EGD and IR eval, if rebleed consider repeat IR eval. Improving nicely. GI bleed: avoid ASA, GI is involved Dysphagia: pending PEG tube Carcinoid tumor: Low-grade neuroendocrine tumor confirmed by pathology and with his tumor markers in the blood, chromogranin has been 1199 in December and serotonin was 2620 in December, both rising since September, recommended beginning treatment with long acting octreotide, 20 mg q28 days (can start this as soon as outpt, will do short-acting 100 mcg q6h until dc), and it was recommended for follow-up imaging and echocardiogram though he has had these recently at [facility], records in chart, no e/o progression, if functional status improves could re-consider Y 90 vs other Functional decline: needing rehab likely... Disposition: After PEG tube, we'll f/u prn to schedule long-acting octreotide after dc Thank you kindly, and please don't hesitate to call with any further questions. OBJECTIVE Vital Signs Vital Signs Date Time Temp Pulse Resp B/P (MAP) Pulse Ox O2 Delivery O2 Flow Rate FiO2 02/07/19 07:00 97.7 72 18 118/57 (77) 95 Room Air 97.7 02/07/19 02:28 98.1 61 16 137/69 (91) 95 Room Air 98.1 02/06/19 22:23 98.1 51 18 119/61 (80) 95 Room Air 98.1 02/06/19 20:00 Room Air 3.0 02/06/19 19:23 97.7 59 20 120/54 (76) 96 Room Air 97.7 02/06/19 14:41 98.3 80 18 108/75 (86) 95 Room Air 98.3 02/06/19 10:45 97.9 88 18 122/50 (74) 94 Room Air 97.9 I & O l Intake and Output 02/07/19 06:59 Intake Total 1500 ml Output Total 200 ml Balance 1300 ml Other 1500 ml Output Urine Total 200 ml # Voids 14 COMMENT Lab Laboratory Tests Test 02/07/19 03:25 White Blood Count 6.0 x10^3/uL (4.0-11.0) Red Blood Count 2.93 x10^6/uL (4.30-5.70) Hemoglobin 8.9 g/dL (13.0-17.5) Hematocrit 27.0 % (39.0-53.0) Mean Corpuscular Volume 92 fL (79-100) Mean Corpuscular Hemoglobin 30 pg (25-35) Mean Corpuscular Hemoglobin Concent 33 g/dL (31-37) Red Cell Distribution Width 16.9 % (11.5-14.5) Platelet Count 254 x10^3/uL (140-400) Neutrophils (%) (Auto) 68 % (31-73) Lymphocytes (%) (Auto) 21 % (24-48) Monocytes (%) (Auto) 9 % (0-9) Eosinophils (%) (Auto) 2 % (0-3) Basophils (%) (Auto) 1 % (0-3) Neutrophils # (Auto) 4.1 x10^3uL (1.8-7.7) Lymphocytes # (Auto) 1.3 x10^3/uL (1.0-4.8) Monocytes # (Auto) 0.5 x10^3/uL (0.0-1.1) Eosinophils # (Auto) 0.1 x10^3/uL (0.0-0.7) Basophils # (Auto) 0.1 x10^3/uL (0.0-0.2) Prothrombin Time 12.9 SEC (11.7-14.0) Prothromb Time International Ratio 1.0 (0.8-1.1) Nutrition Consultation Dietary Evaluation: Recommendations by RD: PPN/TPN Comments: REC continue PPN for short-term non-oral nutrition needs until PEG decided vs comfort care. Expected Outcomes/Goals: nutrition goals pending plan of care Interpretation of weight loss: >10% in 6 months Malnutrition Findings: Food and Nutrition Intake (Mod: <75% est energy req 7days Weight Status: Underweight LISET LUONG MD February 07, 2019 08:34
--- NOTE | 2019-02-07 13:26 | PN ---
DATE: 02/07/2019 LOCATION: Room 252. SUBJECTIVE: The patient is awake and alert. He is agreeable and ready for a feeding tube today. Denies any significant discomfort. OBJECTIVE: VITAL SIGNS: Stable. He is afebrile. Hemoglobin is stable this morning of 8.9, INR is 11.0. CHEST: Clear. HEART: Regular. ABDOMEN: Benign. Palpable liver mass is still present. EXTREMITIES: Without cyanosis, clubbing, edema. NEUROLOGIC: Again mental status is approaching his normal, although nursing tells me he was incontinent of urine all night. IMPRESSION: 1. Metastatic neuroendocrine tumor with liver involvement. 2. Gastrointestinal bleeding, likely due to the same. 3. Dysphagia with PEG tube placement today. PLAN: Once a PEG is placed, we will see how he is doing from a therapy standpoint once we are able to use the PEG tube. It would seem that he could go on to his next setting, which would be rehab versus home, depending on how he is doing with therapy. The kicker here is the octreotide and payment for the same as he leaves this setting. ROMANA KAUR MD DR: PARIS/yared JOB#: [id number] / [id number]
--- NOTE | 2019-02-07 13:29 | NUR ---
SS following up with discharge planning. Pt accepted at [facility] when medically stable for discharge.
[2019-02-07] MEDS ORDERED: LIDOCAINE 2% PF 5 ML VIAL. ONE (13:44)
[2019-02-07] MEDS ORDERED: PROPOFOL 20 ML IV ONE (13:44)
--- NOTE | 2019-02-07 14:13 | PDOC4 ---
PROCEDURE Procedure EGD with PEG for dysphagia anesthesia with propofol and 1 gram ancef Findings- esophagus normal mild gastritis normal duodenum Successful placement of 20 fr PEG in body of stomach start flushes and feedings at 6 pm JOHNNY Sherwood MD February 07, 2019 14:13
--- NOTE | 2019-02-07 15:00 | NUR ---
Patient arrived back to room after EGD with PEG tube placement at 1500. Patient is A&O. VSS. Abd binder is in place. PEG site is CDI.
[2019-02-07] MEDS: ACETAMINOPHEN 650 MG SUPP.RECT. PR PRN (15:14)
[2019-02-07] MEDS: HYDROcodone/APAP 5/325MG 1 TAB TABLET PO PRN ×2 (18:25→23:53)
--- NOTE | 2019-02-07 18:30 | NUR ---
Patient's tube feeding was started at 1830. Peg tube working well.
--- NOTE | 2019-02-07 18:49 | NUR ---
Patient's is constantly asking for pain medication for her & trying to speak for him. PRN Hydrocodone was administered via PEG tube & 5 minutes after administration she was already asking for more. This functional tester typewriters tried to educate patient's that it takes a little bit of time for it to start working & that he will get PRN Tylenol suppository when it is due. Patient does complain of pain on L side/ribs & rates it 6-8/10. Abd binder was loosened to help & lights were dimmed. Will continue to monitor.
[2019-02-08] MEDS: IV RINGERS,LACTATED 1000ML 1,000 ML IV SCH ×3 (01:45→21:44)
[2019-02-08 03:08] VITALS: BP 128/69
[2019-02-08] MEDS: OCTREOTIDE 100 MCG/ML VIAL SQ SCH ×4 (05:03→23:09)
[2019-02-08] MEDS: HYDROcodone/APAP 5/325MG 1 TAB TABLET PO PRN ×2 (05:04→14:22)
[2019-02-08] MEDS: LEVOTHYROXINE 75 MCG TABLET PO SCH (05:04)
[2019-02-08] MEDS: AMINO AC 3%/ELECTROLYTE/GLYCER 1,000 ML IV SCH ×3 (07:30→21:44)
[2019-02-08 07:42] VITALS: BP 127/65
[2019-02-08] MEDS: PANTOPRAZOLE IV PUSH 40 MG VIAL. IVP SCH (08:48)
--- NOTE | 2019-02-08 09:50 | PDOC ---
SUBJECTIVE Subjective S: Doing well, had PEG tube yesterday, has tube feeds going at 30 mL without p roblems O: Gen: NAD, tall elderly man resting in bed, NAD Abdomen: PEG tube hooked up to tube feeds with overlying abdominal binder Neuro: alert, answering questions Psych: pleasant mood and affect Labs: Hb 8.9 recently INR 1.0 Rads: from [facility] obtained, in chart, tumor in liver 11-13 cm on MRI/CT, sev oropharyngeal dysphagia on swallow study and EF 50% on TTE w/ seo eval of diastolic function rbc scan consider stom or sm bowel bleed recent EGD non bleeding gastric ulcers CTA poss jejunal mass, hep mass 12 cm, mesenteric LAD A/P: He is a 73-year-old man with 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 Cannot get long acting as inpt. has had EGD and IR eval, if rebleed consider repeat IR eval. Improving nicely. On PEG tube for severe dysphagia. GI bleed: avoid ASA, follow-up GI as needed Dysphagia: PEG tube feeds for nutrition Carcinoid tumor: Low-grade neuroendocrine tumor confirmed by pathology and with his tumor markers in the blood, chromogranin has been 1199 in December and serotonin was 2620 in December, both rising since September, recommended treatment with long acting octreotide, 20 mg q28 days (can start this as soon as outpt, will do short-acting 100 mcg q6h until this is set up at [facility]), and it was recommended for follow-up imaging and echocardiogram though he has had these recently at [facility], records in chart, no e/o progression, if functional status improves could re-consider Y 90 vs other Functional decline: needing rehab likely to [facility] Disposition: soon, we'll f/u to schedule long-acting octreotide after dc as outpt, rec short-acting til then Thank you kindly, and please don't hesitate to call with any further questions, I will return on Wednesday but am available via phone as needed prior. OBJECTIVE Vital Signs Vital Signs Date Time Temp Pulse Resp B/P (MAP) Pulse Ox O2 Delivery O2 Flow Rate FiO2 02/08/19 08:00 Room Air 02/08/19 07:42 98.0 93 18 127/65 (85) 95 Room Air 98.0 02/08/19 07:34 96 Room Air 2.0 02/08/19 05:04 18 96 Room Air 2.0 02/08/19 03:08 97.8 97 20 128/69 (88) 96 Room Air 97.8 02/08/19 00:53 18 02/07/19 23:53 18 96 Room Air 2.0 02/07/19 23:31 97.8 97 20 117/62 (80) 96 Room Air 97.8 02/07/19 20:00 Room Air 2.0 02/07/19 19:04 82 128/55 (79) Room Air 02/07/19 18:25 16 96 Room Air 02/07/19 18:04 80 108/59 (75) Room Air 02/07/19 17:30 87 137/62 (87) 02/07/19 17:00 67 140/62 (88) 02/07/19 16:35 71 134/64 (87) 02/07/19 16:05 71 132/65 (87) 02/07/19 15:49 69 130/67 (88) 02/07/19 15:30 69 141/71 (94) 02/07/19 15:19 99.1 73 138/60 (86) 99.1 02/07/19 14:50 97.0 70 18 135/70 96 Room Air 97.0 02/07/19 14:35 77 20 127/75 97 Room Air 02/07/19 14:20 97 70 18 119/56 99 Nasal Cannula 2 97.0 02/07/19 12:03 98.0 70 96 98.0 02/07/19 12:02 Room Air 3.0 02/07/19 11:00 98.0 70 18 128/61 (83) 96 Room Air 98.0 I & O Intake and Output 02/08/19 07:00 Intake Total 480 ml Output Total 0 ml Balance 480 ml Tube Feeding 480 ml Output Urine Total 0 ml Gastric Drainage Total 0 ml # Voids 4 Nutrition Consultation Dietary Evaluation: Recommendations by RD: PPN/TPN Comments: REC continue PPN for short-term non-oral nutrition needs until PEG decided vs comfort care. Expected Outcomes/Goals: nutrition goals pending plan of care Interpretation of weight loss: >10% in 6 months Malnutrition Findings: Food and Nutrition Intake (Mod: <75% est energy req 7days Weight Status: Underweight LISET LUONG MD February 08, 2019 09:50
[2019-02-08 10:24] VITALS: BP 118/48
--- NOTE | 2019-02-08 12:49 | PDOC ---
Objective: Objective: Reviewed w/ RN - PEG functioning, possible DC to [facility] today. Reviewed chart - asking for lots of pain meds for him. Stool charted 02/04. Vital Signs: Vital Signs Date Time Temp Pulse Resp B/P (MAP) Pulse Ox O2 Delivery O2 Flow Rate FiO2 02/08/19 10:24 98.5 77 18 118/48 (71) 96 Room Air 98.5 02/08/19 07:34 2.0 Imaging: EGD/PEG 02/07 esophagus normal mild gastritis normal duodenum PE: GEN: NAD - was sleep LUNGS: CTAB HEART: RRR ABD: BS quiet, PEG in place - removed gauze from under outer bumper, abd tender diffusely - he winces and moves his arms around, replaced abd binder NEURO/PSYCH: opens eyes, doesn't speak A/P: Carcinoid Dysphagia s/p PEG -- PEG functioning. ?abd pain - difficult to tell with limited history from him - check KUB. DC per primary. SCOTT URBINA February 08, 2019 12:49
[2019-02-08] MEDS ORDERED: LANS30TA6 FT (14:23)
[2019-02-08] MEDS ORDERED: OCTR100V SQ (14:23)
--- NOTE | 2019-02-08 14:24 | SNU/HH DC ---
DISCHARGE ORDERS DISCHARGE INFORMATION: DISCHARGE DATE: February 08, 2019 CONDITION ON DISCHARGE: Stable CODE STATUS: Code Status: Full [facility]: SNF STAY <30 DAYS: Yes HOSPICE: HOSPICE: No HOSPICE EVAL & TREAT: No LTAC: ADMIT TO LTAC: No POST DISCHARGE ORDERS: ACTIVITY ORDERS: Activity as tolerated WEIGHT BEARING STATUS: No restrictions, As tolerated DIET AFTER DISCHARGE: NPO CHECKS AFTER DISCHARGE: CHECKS AFTER DISCHARGE: Check blood press - daily TREATMENT/EQUIPMENT ORDERS: Physical Therapy For: Evalulation/Treatment Occupational Therapy For: Evaluation/Treatment DISCHARGE MEDICATIONS: Home Meds Active Scripts Octreotide Acetate (OCTREOTIDE ACETATE) 100 Mcg/1 Ml Vial, 100 MCG SQ Q6H for neuroendocrine tumor for 30 Days, #120 EACH Prov:ROMANA KAUR MD 02/08/19 Lansoprazole (PREVACID) 30 Mg Tab.rap.dr, 30 MG FT DAILY for gi bleeding for 30 Days, #30 TAB Prov:ROMANA KAUR MD 02/08/19 Reported Medications Levothyroxine Sodium (LEVOTHYROXINE SODIUM) 75 Mcg Tablet, 1 TAB PO DAILY for thyroid, #30 TAB 5 Refills 09/07/18 Hydrocodone/Apap 5-325 (NORCO 5-325 TABLET) 1 Each Tablet, 1-2 TAB PO Q4-6HRS for abd pain, #40 TAB 09/07/18 Discontinued Reported Medications Aspirin (ASPIRIN) 325 Mg Tablet, 2 TAB PO PRN Q4HRS PRN for PAIN, #30 TAB 5 Refills 01/30/19 Diazepam (DIAZEPAM) 5 Mg Tablet, 5 MG PO TID for anxiety, TAB 09/07/18 ROMANA KAUR MD February 08, 2019 14:24
--- NOTE | 2019-02-08 14:46 | NUR ---
SS following up with discharge planning. Discharge orders received for [facility], ; fax [phone]. SS [facility] and [facility]. Pt will discharge today and go to [facility] at 1700. [facility] to provide transport. Pt, pt's RN, and pt's spouse notified.
--- NOTE | 2019-02-08 15:06 | RAD ---
Portable abdomen, 02/08/2019: HISTORY: Abdominal pain A tube overlying the left midabdomen probably represents a gastrostomy tube. There are radiopacities overlying the upper abdomen near the midline compatible with old embolization coils. The abdominal gas pattern is unremarkable. There is no evidence of organomegaly. IMPRESSION: No acute abdominal abnormality is detected. Electronically signed by: Dangelo Armas MD (02/08/2019 3:03 PM) [facility]
[2019-02-08 15:25] VITALS: BP 114/60
--- NOTE | 2019-02-08 17:12 | NUR ---
Patient D/C on hold per GI, [facility] called an notified, VM left with charge nurse no answer. Salome noticed. MD Mroro notified.
--- NOTE | 2019-02-08 18:35 | DS ---
DATE OF DISCHARGE: 02/08/2019 PRIMARY DIAGNOSIS: Metastatic neuroendocrine tumor. ADDITIONAL DIAGNOSES: Dehydration, weakness, falls, malnutrition, GI bleed, anemia, dysphagia with placement of a feeding tube during the stay, and encephalopathy. CHIEF COMPLAINT AND HISTORY OF PRESENT ILLNESS: This 73-year-old white male was admitted due to profound weakness, inability to walk or do self-care. On the day of admission, he was known to have metastatic neuroendocrine tumor of the liver. SUMMARY OF STAY: The patient was admitted, initially hydrated with some improvement. He was initially very encephalopathic. Medications were adjusted for the same and anemia level was checked, but it was normal. He did develop GI bleeding, which required transfusion during the stay with stopping 2-3 days prior to discharge with his last hemoglobin on the day prior to discharge being 8.9. He did receive octreotide 100 mcg subcutaneously every 6 hours during the stay with this controlling the bleeding and stopped any diarrhea that he was having prior to the time of admission. He did have an EGD done and small bowel enteroscopy because of recurrent GI bleeding on the showing esophagus normal, some gastritis, but nonbleeding erosions. Duodenum was normal. We were able to pass into the third portion of the duodenum, but restrictive and unable to pass the scope further. Bleeding as well as tumors, etc. were seen. 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 CTA showed blush of contrast in the proximal jejunum. The visceral angiography in an attempt to stop bleeding showed no evidence of bleeding at the time of doing that. He was found to be profoundly dysphagic and had a PEG tube placed during the stay. In addition, his mental status did improve, anemia was stable. It was felt that he would have a prolonged bleeding and would need lot of therapy as well as nutrition, and the patient was felt he could be dismissed to long term on the day of discharge. DISPOSITION: The patient is discharged to long term. Please see orders regarding diet, medication, activity, etc. We will continue to follow him there. ROMANA KAUR MD DR: PARIS/yared JOB#: [id number] / [id number]
[2019-02-08 19:25] VITALS: BP 113/55
[2019-02-08 23:43] VITALS: BP 131/49
[2019-02-09 03:15] VITALS: BP 111/55
[2019-02-09] MEDS: OCTREOTIDE 100 MCG/ML VIAL SQ SCH ×2 (04:47→10:19)
[2019-02-09] MEDS: LEVOTHYROXINE 75 MCG TABLET PO SCH (04:48)
[2019-02-09] MEDS: HYDROcodone/APAP 5/325MG 1 TAB TABLET PO PRN ×2 (04:48→08:37)
[2019-02-09] MEDS: IV RINGERS,LACTATED 1000ML 1,000 ML IV SCH (06:05)
[2019-02-09] MEDS: AMINO AC 3%/ELECTROLYTE/GLYCER 1,000 ML IV SCH (06:05)
[2019-02-09 07:00] VITALS: BP 104/44
[2019-02-09] MEDS ORDERED: LANSOPRAZOLE 30 MG TAB.RAP.DR FT SCH (09:00)
[2019-02-09 11:00] VITALS: BP 103/53
--- NOTE | 2019-02-09 12:40 | PDOC ---
Objective: Vital Signs: Vital Signs Date Time Temp Pulse Resp B/P (MAP) Pulse Ox O2 Delivery O2 Flow Rate FiO2 02/09/19 11:00 98.2 94 20 103/53 (70) 94 Room Air 98.2 02/09/19 08:37 2.0 Imaging: KUB 02/08 IMPRESSION: No acute abdominal abnormality is detected. PE: GEN: NAD LUNGS: CTAB HEART: RRR ABD: quiet BS, PEG in place, tender right abdomen, binder replaced NEURO/PSYCH: A & O 3, drowsy, mumbles a few words A/P: Carcinoid Dysphagia s/p PEG Abd pain -- I saw the patient twice today - once early this morning and one this afternoon. D/w RN and Dr. Brand. Abdomen seems softer today. 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 PEG site is clean/dry, no erythema or drainage. Outer bumper just about 4cm. PEG flushes well without pain and functions for feeds. Okay to DC to [facility]. SCOTT URBINA February 09, 2019 12:40
--- NOTE | 2019-02-09 13:02 | NUR ---
SS following up with discharge planning. SS received notification that pt was okay to discharge. Pt will discharge today and go to [facility], ; fax [phone], at 1600. [facility] to provide transport. Pt, pt's RN, and pt's spouse notified.
--- NOTE | 2019-02-09 13:29 | PDOC ---
GENERAL General: everything set for dc yesterday but held by GI for abdominal tenderness. he sti ll is tender anterolateral to PEG site. he is tolerating tube feedings. mentally he is alert. ok for dc when ok with GI. yesterday's dc summary is accurate for today's dc. VITAL SIGNS Vital Signs: Vital Signs Date Time Temp Pulse Resp B/P (MAP) Pulse Ox O2 Delivery O2 Flow Rate FiO2 02/09/19 11:00 98.2 94 20 103/53 (70) 94 Room Air 98.2 02/09/19 08:37 2.0 I & O I & O Intake and Output 02/09/19 06:59 Intake Total 320 ml Balance 320 ml Intake Oral 0 ml Tube Feeding 320 ml # Voids 9 ALLERGIES Allergies: Allergies Coded Allergies Type Severity Reaction Last Updated Verified oxycodone Allergy Unknown Unknown 02/07/19 Yes fentanyl Adverse Reaction Intermediate Nausea and Vomiting 02/07/19 Yes MEDS Medications: Current Medications Medications (Trade) Dose Ordered Sig/Amarjit Start Time Stop Time Status Last Admin Dose Admin Acetaminophen (Tylenol Supp) 650 mg PRN Q6HRS PRN 02/04/19 13:15 02/07/19 15:14 650 MG Acetaminophen/ Hydrocodone Bitart (Lortab 5/325) 1 tab PRN Q4HRS PRN 02/07/19 17:30 02/09/19 08:37 1 TAB Amino Acids/ Glycerin/ Electrolytes 1,000 ml @ 125 mls/hr Q8H 02/02/19 15:30 02/07/19 23:30 125 MLS/HR Aspirin (Patel Aspirin) 650 mg PRN Q4HRS PRN 01/30/19 13:30 01/31/19 08:07 DC Barium Sulfate (Varibar Thin Liquid Apple) 148 gm 1X ONCE 02/02/19 10:30 02/02/19 10:31 DC 02/02/19 11:37 148 GM Cefazolin Sodium 50 ml @ 100 mls/hr 1X PREOP PRN 02/07/19 14:00 02/08/19 13:59 DC 02/07/19 13:47 100 MLS/HR Diazepam (Valium) 5 mg TID 01/30/19 14:00 02/01/19 08:08 DC 01/31/19 21:09 5 MG Fentanyl Citrate (Fentanyl 2ml Vial) 100 mcg STK-MED ONCE 02/03/19 13:32 02/03/19 13:33 DC Heparin Sodium (Porcine) (HEPARIN for NUC MED) 100 unit 1X ONCE 02/02/19 11:45 02/02/19 11:46 DC Heparin Sodium/ Sodium Chloride (HEPARIN for ARTERIAL LINE FLUSH) 1,000 unit 1X ONCE 02/03/19 14:30 02/03/19 14:31 DC 02/03/19 15:16 1,000 UNIT Info (CONTRAST GIVEN -- Rx MONITORING) 1 each PRN DAILY PRN 02/03/19 14:30 02/05/19 14:29 DC Iohexol (Omnipaque 300 Mg/ml) 100 ml 1X ONCE 02/03/19 14:30 02/03/19 14:31 DC 02/03/19 15:16 86 ML Iohexol (Omnipaque 350 Mg/ml) 70 ml 1X ONCE 02/02/19 16:15 02/02/19 16:16 DC 02/02/19 16:15 70 ML Lansoprazole (Prevacid) 30 mg DAILY 02/09/19 09:00 02/09/19 08:36 30 MG Levothyroxine Sodium (Synthroid) 75 mcg DAILY06 01/30/19 14:00 02/09/19 04:48 75 MCG Lidocaine HCl (Lidocaine Pf 2% Vial) 5 ml STK-MED ONCE 02/07/19 13:44 02/07/19 13:45 DC Lidocaine HCl (Xylocaine-Mpf 1% 2ml Vial) 2 ml PRN 1X PRN 02/07/19 07:00 02/08/19 07:00 DC Lidocaine/Sodium Bicarbonate (Buffered Lidocaine 1%) 3 ml 1X ONCE 02/03/19 14:30 02/03/19 14:31 DC 02/03/19 15:16 4 ML Lorazepam (Ativan) 0.5 mg PRN Q6HRS PRN 02/04/19 11:00 02/07/19 23:53 0.5 MG Midazolam HCl (Versed) 2 mg STK-MED ONCE 02/03/19 13:32 02/03/19 13:33 DC Morphine Sulfate (Morphine Sulfate) 2 mg PRN Q2HR PRN 01/31/19 01:30 02/02/19 08:34 DC 02/02/19 04:27 2 MG Octreotide Acetate (SandoSTATIN) 100 mcg Q6H 01/31/19 10:00 02/09/19 10:19 100 MCG Ondansetron HCl (Zofran) 4 mg PRN Q6HRS PRN 02/07/19 07:00 02/08/19 07:00 DC Pantoprazole Sodium (PROTONIX VIAL for IV PUSH) 40 mg DAILYAC 02/01/19 07:30 02/08/19 12:48 DC 02/08/19 08:48 40 MG Phytonadione (Vitamin K Ampule) 10 mg 1X ONCE 01/30/19 19:15 01/30/19 19:16 DC 01/30/19 22:56 10 MG Potassium Chloride/Sodium Chloride 1,000 ml @ 125 mls/hr Q8H 01/30/19 13:20 02/02/19 15:25 DC 02/02/19 05:20 125 MLS/HR Prochlorperazine Edisylate (Compazine) 5 mg PACU PRN PRN 02/07/19 07:00 02/08/19 07:00 DC Propofol 20 ml @ As Directed STK-MED ONCE 02/07/19 13:44 02/07/19 13:45 DC Ringer's Solution 1,000 ml @ 30 mls/hr Q24H 02/07/19 07:00 02/07/19 18:59 DC 02/07/19 12:05 30 MLS/HR Scopolamine (Transderm-Scop) 1 patch Q3DAYS 02/02/19 20:15 02/04/19 10:54 DC 02/02/19 21:39 1 PATCH Nutrition Consultation Dietary Evaluation: Recommendations by RD: PPN/TPN Comments: REC continue PPN for short-term non-oral nutrition needs until PEG decided vs comfort care. Expected Outcomes/Goals: nutrition goals pending plan of care Interpretation of weight loss: >10% in 6 months Malnutrition Findings: Food and Nutrition Intake (Mod: <75% est energy req 7days Weight Status: Underweight ROMANA KAUR MD February 09, 2019 13:29
--- NOTE | 2019-02-09 16:44 | NUR ---
REPORT GIVEN TO ROBER AT [facility]. PT DISCHARGED [facility] FROM TRANSPORTATION FROM THE PATIENT.
--- NOTE | 2019-02-09 16:46 | NUR ---
MESSAGE LEFT FOR DR KAUR TO LET HIM KNOW THAT THE PT WAS TRANSFERRED TO [facility]
== END 2019-02-09 16:52 | DRG 374 ==
LOC: 5 NORTH 11:53 → 6 SOUTH 20:50 → 1 WEST ICU 01-31 08:17 → 6 SOUTH 02-01 18:43 → 2 SOUTH 02-03 15:57
PROVIDERS: ADMIT Family Medicine; ATTEND Family Medicine
PROC: 0DJ08ZZ Inspection of Upper Intestinal Tract, Via Natural or Artificial Opening Endoscopic (ICD-10-PCS; 2019-02-03)
PROC: 0DB78ZX Excision of Stomach, Pylorus, Via Natural or Artificial Opening Endoscopic, Diagnostic (ICD-10-PCS; 2019-02-03)
PROC: 0DB68ZX Excision of Stomach, Via Natural or Artificial Opening Endoscopic, Diagnostic (ICD-10-PCS; 2019-02-03)
PROC: B41B1ZZ Fluoroscopy of Other Intra-Abdominal Arteries using Low Osmolar Contrast (ICD-10-PCS; 2019-02-06)
PROC: B4141ZZ Fluoroscopy of Superior Mesenteric Artery using Low Osmolar Contrast (ICD-10-PCS; 2019-02-06)
PROC: 30233N1 Transfusion of Nonautologous Red Blood Cells into Peripheral Vein, Percutaneous Approach (ICD-10-PCS; 2019-02-07)
PROC: 0DH63UZ Insertion of Feeding Device into Stomach, Percutaneous Approach (ICD-10-PCS; 2019-02-07)
PROC: 30233K1 Transfusion of Nonautologous Frozen Plasma into Peripheral Vein, Percutaneous Approach (ICD-10-PCS; principal; 2019-02-07 15:00)
DX: C7A.019 Malignant carcinoid tumor of the small intestine, unspecified portion (principal); E43 Unspecified severe protein-calorie malnutrition; K25.4 Chronic or unspecified gastric ulcer with hemorrhage; G93.40 Encephalopathy, unspecified; D68.9 Coagulation defect, unspecified; C77.9 Secondary and unspecified malignant neoplasm of lymph node, unspecified; C7B.02 Secondary carcinoid tumors of liver; E03.9 Hypothyroidism, unspecified; I95.9 Hypotension, unspecified; E86.0 Dehydration; F41.9 Anxiety disorder, unspecified; R62.7 Adult failure to thrive; R13.12 Dysphagia, oropharyngeal phase; K29.60 Other gastritis without bleeding; D64.9 Anemia, unspecified; H54.7 Unspecified visual loss; J45.909 Unspecified asthma, uncomplicated; Z68.21 Body mass index [BMI] 21.0-21.9, adult; Z88.8 Allergy status to other drugs, medicaments and biological substances; Z87.891 Personal history of nicotine dependence; Z82.49 Family history of ischemic heart disease and other diseases of the circulatory system
CPT/HCPCS: 36245; 36415; 43239; 43246; 74018; 74022; 74174; 74230; 75726; 76937; 78278; 80048; 80053; 82140; 82962; 85014; 85018; 85025; 85027; 85384; 85610; 85730; 86850; 86900; 86901; 86920; 86927; 88305; 88342; 96374; A9560; C1713; C1769; C1892; C1894; C9113; G0269; J0690; J1644; J2001; J2060; J2270; J2354; J2704; J3010; J3430; J7120; P9016; P9017; Q9967; 92610; 92611; 97110; 97116; 97530; 97535

== ENCOUNTER 2019-02-10 02:00 | Emergency (ER) | payer MEDICARE ==
[~2019-02-10] VITALS: Ht 193 cm; Wt 83.5 kg
[~2019-02-10 02:00] MED LIST changes: +ASPI325T8 PO; +LANS30TA6 FT; +OCTR100V SQ
[2019-02-10 02:09] VITALS: BP 118/55
--- NOTE | 2019-02-10 03:59 | PHYS DOC ---
Past Medical History Past Medical History: Cancer, Dementia, GERD, Liver Disease Past Surgical History: Other Additional Past Surgical Histo: "INTESTINE GROWTH REMOVAL" Alcohol Use: None Drug Use: None Adult General Chief Complaint Chief Complaint: OTHER COMPLAINTS HPI HPI Patient is a 73 year old male group home patient with history of dementia with PEG tube placement who presents with concern for need for PEG tube replacement. PEG tube is in place with port end cut off. Stomach contents draining form tube which is not clamped. Patient is otherwise calm and cooperative. [] Review of Systems Review of Systems ROS as per HPI Hx limited by dementia. Allergies Allergies Allergies Coded Allergies Type Severity Reaction Last Updated Verified oxycodone Allergy Unknown Unknown 02/07/19 Yes fentanyl Adverse Reaction Intermediate Nausea and Vomiting 02/07/19 Yes Physical Exam Physical Exam Constitutional: Well developed, well nourished, no acute distress, non-toxic appearance. [] HENT: Normocephalic, atraumatic, bilateral external ears normal, oropharynx moist, nose normal. [] Eyes: PERRLA, EOMI, conjunctiva normal, no discharge. [] Neck: Normal range of motion, no tenderness. [] Cardiovascular:Heart rate regular rhythm, no murmur [] Lungs & Thorax: Bilateral breath sounds clear to auscultation [] Abdomen: Bowel sounds normal, soft, no tenderness. PEG tube in place, stomach contents draining from tube. [] Skin: Warm, dry. [] Back: No tenderness. [] Extremities: No tenderness, no edema. [] Neurologic: Alert and oriented X 1, normal motor function, normal sensory function, no focal deficits noted. [] Current Patient Data Vital Signs Vital Signs Date Time Temp Pulse Resp B/P (MAP) Pulse Ox O2 Delivery O2 Flow Rate FiO2 02/10/19 02:09 98.1 88 19 118/55 (76) 96 Room Air 98.1 EKG EKG [] Radiology/Procedures Radiology/Procedures [] Course & Med Decision Making Course & Med Decision Making Pertinent Labs and Imaging studies reviewed. (See chart for details) [PEG tube in place and clamped. Vital signs stable. M soft, nontender. Patient will be returned to group home facility with instructions to follow-up with GI or interventional radiology outpatient for tube placement. ] Dragon Disclaimer Dragon Disclaimer This electronic medical record was generated, in whole or in part, using a voice recognition dictation system. Departure Departure Impression: Primary Impression: Leaking PEG tube Disposition: HOME, SELF-CARE Condition: STABLE Patient Instructions: PEG, Home Care, [id number] Additional Instructions: Keep PEG tube clamped after use and contact interventional radiology or GI service tomorrow to arrange for PEG tube replacement. ALBA WAYNE DO February 10, 2019 03:59
== END 2019-02-10 04:22 | disposition home or self-care (01) ==
LOC: ER 02:00
DX: K94.23 Gastrostomy malfunction (principal); K21.9 Gastro-esophageal reflux disease without esophagitis; F03.90 Unspecified dementia, unspecified severity, without behavioral disturbance, psychotic disturbance, mood disturbance, and anxiety; Z88.4 Allergy status to anesthetic agent; Z88.5 Allergy status to narcotic agent; Y83.8 Other surgical procedures as the cause of abnormal reaction of the patient, or of later complication, without mention of misadventure at the time of the procedure; Y92.89 Other specified places as the place of occurrence of the external cause
CPT/HCPCS: 99284

== ENCOUNTER 2019-02-13 18:16 | Inpatient (IN) | payer MEDICARE ==
[~2019-02-13] VITALS: Ht 193 cm; Wt 63.8 kg
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
[2019-02-13] MEDS ORDERED: OCTREOTIDE 100 MCG/ML VIAL SQ ONE (19:30)
[2019-02-13 20:19] LABS: BASO % 0 % (0-3); EOS # 0.1 x10^3/uL (0.0-0.7); EOS % 1 % (0-3); HEMATOCRIT 31.2 % (39.0-53.0); HEMOGLOBIN 10.2 g/dL (13.0-17.5); LYMPH # 0.8 x10^3/uL (1.0-4.8); LYMPH % 8 % (24-48); MEAN CORPUSCULAR HEMOGLOBIN 30 pg (25-35); MEAN CORPUSCULAR HGB CONC 33 g/dL (31-37); MEAN CORPUSCULAR VOLUME 92 fL (79-100); MONO # 0.7 x10^3/uL (0.0-1.1); MONO % 8 % (0-9); NEUT % 83 % (31-73); PLATELET COUNT 462 x10^3/uL (140-400); RED CELL DISTRIBUTION WIDTH 17.2 % (11.5-14.5); WHITE BLOOD COUNT 9.7 x10^3/uL (4.0-11.0)
[2019-02-13 20:47] LABS: CALCIUM 8.8 mg/dL (8.5-10.1); CREATININE 1.2 mg/dL (0.7-1.3); GFR 59.2; POTASSIUM 3.6 mmol/L (3.5-5.1)
[2019-02-13] MEDS ORDERED: ONDANSETRON PF 4 MG/2 ML VIAL. IV PRN (22:00)
[2019-02-13 22:10] VITALS: BP 120/66
[2019-02-14] MEDS: HYDROcodone/APAP 5/325MG 1 TAB TABLET PO PRN ×3 (00:07→17:13)
[2019-02-14] MEDS: OCTREOTIDE 100 MCG/ML VIAL SQ SCH ×4 (00:15→18:54)
[2019-02-14 03:20] VITALS: BP 112/62
[2019-02-14 04:01] LABS: BASO # 0.1 x10^3/uL (0.0-0.2); BASO % 1 % (0-3); EOS # 0.1 x10^3/uL (0.0-0.7); EOS % 0 % (0-3); HEMATOCRIT 30.2 % (39.0-53.0); HEMOGLOBIN 9.7 g/dL (13.0-17.5); LYMPH # 1.3 x10^3/uL (1.0-4.8); LYMPH % 10 % (24-48); MEAN CORPUSCULAR HEMOGLOBIN 29 pg (25-35); MEAN CORPUSCULAR HGB CONC 32 g/dL (31-37); MEAN CORPUSCULAR VOLUME 91 fL (79-100); MONO # 0.9 x10^3/uL (0.0-1.1); MONO % 7 % (0-9); NEUT # 10.8 x10^3uL (1.8-7.7); NEUT % 82 % (31-73); PLATELET COUNT 489 x10^3/uL (140-400); RED BLOOD COUNT 3.32 x10^6/uL (4.30-5.70); RED CELL DISTRIBUTION WIDTH 16.6 % (11.5-14.5); WHITE BLOOD COUNT 13.2 x10^3/uL (4.0-11.0)
[2019-02-14 04:28] LABS: CALCIUM 8.7 mg/dL (8.5-10.1); POTASSIUM 3.6 mmol/L (3.5-5.1)
[2019-02-14] MEDS: LEVOTHYROXINE 75 MCG TABLET PO SCH (06:03)
[2019-02-14 07:00] VITALS: BP 113/66
[2019-02-14] MEDS: LANSOPRAZOLE 30 MG TAB.RAP.DR PO SCH (09:00)
--- NOTE | 2019-02-14 10:02 | NUR ---
Clarified with pharmacy that it's ok to give pt the Lansoprazole through his peg. During assessment, copious amounts of green drainage noted, seeping around tube and into brief. Dr. Hooker notified, GI consulted.
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
[2019-02-14 11:00] VITALS: BP 100/4
[2019-02-14] MEDS ORDERED: IOHEXOL 300 MG/ML 100ML VIAL. IV ONE (11:15)
[2019-02-14] MEDS ORDERED: CONTRAST GIVEN. MC PRN (11:15)
--- NOTE | 2019-02-14 13:06 | RAD ---
CT of the abdomen and pelvis with contrast, 02/14/2019: HISTORY: Abdominal pain, drainage around gastrostomy tube Multidetector CT imaging was performed following an IV bolus injection of iodinated contrast material. No oral contrast material was administered for this study. Comparison is made to a study from 02/02/2019. There is mild right basilar linear atelectasis or scarring. Again noted is a large 12 cm heterogeneously enhancing mass in the central aspect of the liver. Radiopacities along its left lateral margin compatible with embolization coils. The remainder of the liver demonstrates heterogeneous enhancement. The gallbladder is unremarkable. The pancreatic head is not visible and cannot be from unopacified bowel. The patient's surgical history in regard to the pancreas is unclear. The pancreatic tail is unremarkable. The spleen is of normal size. The kidneys show no abnormality. There is extensive aortoiliac calcific plaquing. There appears to be mild mesenteric adenopathy. The bowel loops are not dilated. A gastrostomy tube is in place. Its distal bulb appears to lie within the anterior aspect of the body of the stomach. There is now free fluid in the abdomen and pelvis as well as bubbles of free air. There is a small gas collection present along the anterior aspect of the body of the stomach adjacent to the gastrostomy tube suggesting leakage of gas at the gastrostomy site. IMPRESSION: 1. Unchanged large hepatic neoplasm. 2. Mesenteric adenopathy. 3. A gastrostomy tube has been inserted extending into the anterior aspect of the body of the stomach. 4. There is an adjacent extraluminal gas collection as well as other bubbles of free air in the abdomen and pelvis, with a small amount of free fluid, suggesting leakage at the gastrostomy site. PQRS Compliance Statement: One or more of the following individualized dose reduction techniques were utilized for this examination: 1. Automated exposure control 2. Adjustment of the mA and/or kV according to patient size 3. Use of iterative reconstruction technique Electronically signed by: Dangelo Armas MD (02/14/2019 1:03 PM) [facility]
[2019-02-14 15:00] VITALS: BP 103/62
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
[2019-02-14] MEDS: AMOXICILLIN 250 MG/5 ML ORAL.SUSP. PEG SCH (17:14)
[2019-02-14 19:20] VITALS: BP 116/57
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
[2019-02-14 23:20] VITALS: BP 129/55
[2019-02-15] MEDS: OCTREOTIDE 100 MCG/ML VIAL SQ SCH ×4 (00:23→17:54)
[2019-02-15] MEDS: HYDROcodone/APAP 5/325MG 1 TAB TABLET PO PRN ×2 (00:24→08:24)
[2019-02-15 03:20] VITALS: BP 106/50
--- NOTE | 2019-02-15 07:00 | NUR ---
Pt with large drainage noted from pegtube site. Yellowish green pus noted from site. Cleansed site during the noc with wound cleanser and placed drainage sponge at site to help with wound healing. Pt refused to stay in bed without moving during the noc. Pt placed in recliner and sat at nursing station during the noc. Pt's arrived this am before shift change and pt repositioned to bed at the time. No complaints noted at this time. did state the pt drinking pepsi at the facility and not having a difficulty with swallowing. and pt informed of pt needing swallow eval before being able to take anything by mouth at this time. No evidence of learning since pt and going back and forth with each other over the subject. Pt remains npo at this time and report given to day nurse.
[2019-02-15] MEDS: LEVOTHYROXINE 75 MCG TABLET PO SCH (07:16)
[2019-02-15 07:20] VITALS: BP 120/61
[2019-02-15] MEDS: AMOXICILLIN 250 MG/5 ML ORAL.SUSP. PEG SCH ×2 (08:23→21:16)
[2019-02-15] MEDS: LANSOPRAZOLE 30 MG TAB.RAP.DR PO SCH (08:24)
[2019-02-15 10:28] VITALS: BP 126/72
--- NOTE | 2019-02-15 12:55 | NUR ---
Patient pulled out IV stating he did not want it, patient also pulled out his tubing from his PEG tube stating he does not want that either. Page has been sent out to MD Morro.
--- NOTE | 2019-02-15 13:36 | PDOC ---
Objective: Objective: Pulled out IV and unhooked PEG feeds. Vital Signs: Vital Signs Date Time Temp Pulse Resp B/P (MAP) Pulse Ox O2 Delivery O2 Flow Rate FiO2 02/15/19 10:28 97.9 77 17 126/72 (90) 96 Room Air 97.9 Labs: Laboratory Tests Test 02/14/19 17:08 02/14/19 20:52 Glucose (Fingerstick) 89 mg/dL (70-99) 124 mg/dL (70-99) PE: GEN: NAD LUNGS: CTAB HEART: RRR ABD: PEG tube in place (@ 3 cm), gauze under bumper w/ some drainage NEURO/PSYCH: doesn't verbalize A/P: Carcinoid, chronic pain, confusion/non-compliance Dysphagia s/p PEG 02/07/19 -- Continue per Dr. العراقي RN reports plans to place mittens. Again recommended abd binder. Would not place gauze under bumper. SCOTT URBINA February 15, 2019 13:35
[2019-02-15 14:49] VITALS: BP 110/47
--- NOTE | 2019-02-15 15:00 | CONS ---
DATE OF CONSULTATION: 02/15/2019 REQUESTING PHYSICIAN: Dr. Arnulfo العراقي REASON FOR CONSULTATION: Neuroendocrine tumor, on octreotide. HISTORY OF PRESENT ILLNESS: The patient is a 73-year-old gentleman who was noted to have a neuroendocrine tumor measuring 10-12 cm in the liver with abdominal pelvic lymph node metastasis diagnosed in 2018. Pathology initially was concerning for adenocarcinoma, however, read at confirmed low metabolic rate neuroendocrine tumor with positive neuroendocrine markers. His serum serotonin and chromogranin A are also elevated. He was evaluated by Dr. Marina Ovieod on 01/31/2019 and he was started on octreotide. He was readmitted on 02/14/2019 with generalized weakness. He denies any diarrhea. 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 PAST SURGICAL HISTORY: Liver biopsy, small-bowel obstruction with lysis of adhesions in the past. SOCIAL HISTORY: He is and lives with his . He has past history of tobacco use. FAMILY HISTORY: Negative for neuroendocrine tumors. REVIEW OF SYSTEMS: A 12-point review of system was performed. Pertinent positives are mentioned in the history of present illness. Rest of the system review is negative. PHYSICAL EXAMINATION: GENERAL APPEARANCE: The patient is a 73-year-old gentleman who is well built and in no acute cardiorespiratory distress. VITAL SIGNS: Blood pressure 120/61, temperature 97.6. HEENT: Head: Atraumatic, normocephalic. Eyes: No icterus. NECK: Supple. CHEST: Bilaterally symmetrical. HEART: S1, S2 normal. ABDOMEN: Soft, nontender. CENTRAL NERVOUS SYSTEM: No focal deficits. LYMPHATICS: No lymphadenopathy. SKIN: No rashes. PSYCHOLOGIC: Flat affect. MUSCULOSKELETAL: No joint effusions. LABORATORY DATA: WBC 13.2, hemoglobin 9.7, platelet count 489, and creatinine 1.0. Total bilirubin was 0.6 on 01/30/2019. IMPRESSION AND RECOMMENDATIONS: 1. 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 He is currently on octreotide 100 mcg subcutaneously q. 6 hours. I agree to continue the same. I have advised follow up as an outpatient to start longacting octreotide. I will notify Dr. Oviedo, so the patient can see Dr. Oviedo upon discharge: 2. Generalized weakness. Continue supportive care. The patient was in the rehab facility and wanted him to take him home AMA, but was unable to do. He was subsequently admitted to [facility] for further management. 3. Dysphagia, status post PEG placement on 02/07/2019. Appreciate GI evaluation and consultation. 4. Recent gastrointestinal bleed. Hemoglobin stable at 9.7. Continue to monitor. TG LEVIN MD DR: CAROLINA/yared JOB#: [id number] / [id number]
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
--- NOTE | 2019-02-15 17:24 | NUR ---
Patient removed both mittens to his hands. Patient unhooked his tube feeding line from his PEG tube, stating that he did not want it at this time. Patient has been educated multiple times in regards to that is how he gets his feeding. Patient stated he still didn't want it at this time. Patient stated several times that he wants to go home. Patient currently was able to be redirected back to bed.
[2019-02-15 19:41] VITALS: BP 120/70
--- NOTE | 2019-02-15 21:35 | NUR ---
Pt refusing to have peg tube feedings restarted pt states he is fine at this time. Pt alert and oriented. Pt verbalize understanding of possible complications. Pt sitting on side of bed with blankets. Pt given antibiotic through pegtube and flushed tubing with water. Pt informed that tubing will need to be flushed at least every 6 hours as ordered. Pt verbalized understanding however does not want feeding. Pt continues with oozing noted from peg tube site. Cleansed site and placed gauze over site without tape at pt's request.
[2019-02-15 23:56] VITALS: BP 124/70
[2019-02-16] MEDS: OCTREOTIDE 100 MCG/ML VIAL SQ SCH ×4 (00:53→17:58)
[2019-02-16 03:51] VITALS: BP 114/63
--- NOTE | 2019-02-16 06:21 | PN ---
DATE: 02/15/2019 LOCATION: Room 656. SUBJECTIVE: The patient is awake, alert, seems the most oriented I have seen him so far this morning. is at bedside. He denies any specific complaints. OBJECTIVE: VITAL SIGNS: Stable. He is afebrile. Again, he is awake and alert. CHEST: Clear. HEART: Regular. ABDOMEN: With slight tenderness at the PEG insertion. EXTREMITIES: Without cyanosis, clubbing, edema. TSH on admission was somewhat low at 6.213 and he has, I believe, recently been started on thyroid medicine, so this may still be adjusting. I did discuss with him and in detail the need for probable going back to some sort of other facility as opposed to home. There is APS worker involved in the case and discussing with and son who have declined [facility] placement and the patient is agreeable to the same. IMPRESSION: 1. Metastatic carcinoid tumor. 2. Dysphagia with feeding tube status. 3. Generalized weakness secondary to same. PLAN: We will add back PT and OT to take a look at the patient. While he is here, discharge is going to be quite an issue. I am going to ask Oncology to see once again and try to have setup [id number] octreotide on the day of discharge to be done as an outpatient. I anticipate a lot of ongoing discussions with family trying to choose what is best for this patient at discharge. ROMANA KAUR MD DR: PARIS/yared JOB#: [id number] / [id number]
[2019-02-16] MEDS: LEVOTHYROXINE 75 MCG TABLET PO SCH (06:45)
[2019-02-16 07:15] VITALS: BP 106/66
--- NOTE | 2019-02-16 08:42 | PDOC ---
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 ROS- No diarrhea. Objective Objective Vital Signs Date Time Temp Pulse Resp B/P (MAP) Pulse Ox O2 Delivery O2 Flow Rate FiO2 02/16/19 07:15 98.2 95 18 106/66 (79) 98 Room Air 98.2 Intake and Output 02/16/19 07:00 Intake Total 120 ml Output Total 0 ml Balance 120 ml Intake Oral 0 ml Tube Feeding 120 ml Output Urine Total 0 ml Physical Exam General: Alert, No acute distress Neck: No JVD Assessment Assessment Problems Medical Problems: (1) Dehydration Status: Acute (2) Dementia Status: Acute IMPRESSION AND RECOMMENDATIONS: 1. 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 He is currently on octreotide 100 mcg subcutaneously q. 6 hours. I agree to continue the same. I have advised follow up as an outpatient to start longacting octreotide. I will notify Dr. Oviedo, so the patient can see Dr. Oviedo upon discharge. No diarrhea. 2. Generalized weakness. Continue supportive care. The patient was in the rehab facility and wanted him to take him home AMA, but was unable to do. He was subsequently admitted to [facility] for further management. 3. Dysphagia, status post PEG placement on 02/07/2019. Appreciate GI evaluation and consultation. 4. Recent gastrointestinal bleed. Hemoglobin stable at 9.7. Continue to monitor. Comment Review of Relevant I have reviewed the following items lala (where applicable) has been applied. Labs Laboratory Tests Test 02/14/19 17:08 02/14/19 20:52 Glucose (Fingerstick) 89 mg/dL (70-99) 124 mg/dL (70-99) Medications Current Medications Octreotide Acetate (SandoSTATIN) 100 mcg 1X ONCE SQ ; Start 02/13/19 at 19:30; Stop 02/13/19 at 19:31; Status DC Ondansetron HCl (Zofran) 4 mg PRN Q8HRS PRN IV NAUSEA/VOMITING; Start 02/13/19 at 22:00; Stop 02/14/19 at 21:59; Status DC Acetaminophen/ Hydrocodone Bitart (Lortab 5/325) 1 tab PRN Q6HRS PRN PO MODERATE PAIN 4-6 Last administered on 02/15/19at 08:24; Start 02/14/19 at 00:00 Lansoprazole (Prevacid) 30 mg DAILY PO Last administered on 02/15/19at 08:24; Start 02/14/19 at 09:00 Levothyroxine Sodium (Synthroid) 75 mcg DAILY06 PO Last administered on 02/16/19at 06:45; Start 02/14/19 at 06:00 Octreotide Acetate (SandoSTATIN) 100 mcg Q6H SQ Last administered on 02/16/19at 06:45; Start 02/14/19 at 00:00 Iohexol (Omnipaque 300 Mg/ml) 75 ml 1X ONCE IV Last administered on 02/14/19at 11:35; Start 02/14/19 at 11:15; Stop 02/14/19 at 11:16; Status DC Info (CONTRAST GIVEN -- Rx MONITORING) 1 each PRN DAILY PRN MC SEE COMMENTS; Start 02/14/19 at 11:15; Stop 02/16/19 at 11:14 Amoxicillin (Amoxicillin Oral Susp) 500 mg BID PEG Last administered on 02/15/19at 21:16; Start 02/14/19 at 17:00 Active Scripts Active Octreotide Acetate 100 Mcg/1 Ml Vial 100 Mcg SQ Q6H 30 Days Prevacid (Lansoprazole) 30 Mg Tab.rap.dr 30 Mg FT DAILY 30 Days Reported Levothyroxine Sodium 75 Mcg Tablet 1 Tab PO DAILY Satin 5-325 Tablet (Acetaminophen/Hydrocodone Bitart) 1 Each Tablet 1-2 Tab PO Q4-6HRS Vitals/I & O Vital Sign - Last 24 Hours 02/15/19 02/15/19 02/15/19 02/15/19 10:28 14:49 19:41 20:00 Temp 97.9 97.6 98.1 97.9 97.6 98.1 Pulse 77 75 77 Resp 17 16 18 B/P (MAP) 126/72 (90) 110/47 (68) 120/70 (87) Pulse Ox 96 95 95 O2 Delivery Room Air Room Air Room Air Room Air 02/15/19 02/16/19 02/16/19 23:56 03:51 07:15 Temp 98.1 98.2 98.2 98.1 98.2 98.2 Pulse 88 90 95 Resp 18 18 18 B/P (MAP) 124/70 (88) 114/63 (80) 106/66 (79) Pulse Ox 97 94 98 O2 Delivery Room Air Room Air Room Air Intake and Output 02/15/19 02/15/19 02/16/19 15:00 23:00 07:00 Intake Total 0 ml 0 ml 120 ml Output Total 0 ml Balance 0 ml 0 ml 120 ml Nutrition Consultation Dietary Evaluation: Comments: REC TF:jevity 1.5 ( or equiv) 20 ml/hr increase by 10 ml q 8 hr to goal rate of 50 ml/hr flushes to meet 1 ml/kcal :150 ml q 4 hr Expected Outcomes/Goals: tolerate TF at goal Malnutrition Findings: Body Fat Depletion (Non Severe: Mild Depletion Weight Status: Underweight TG LEVIN MD February 16, 2019 08:42
[2019-02-16] MEDS: LANSOPRAZOLE 30 MG TAB.RAP.DR PO SCH (09:00)
[2019-02-16] MEDS: AMOXICILLIN 250 MG/5 ML ORAL.SUSP. PEG SCH ×2 (10:27→20:23)
--- NOTE | 2019-02-16 10:52 | PDOC ---
Subjective: Subjective: Was just out in [place] w/ therapy, now back in chair. "Can't I just have some water?" Thanks me for asking how he's doing, can't really answer when I ask why he doesn't want PEG feeds. Objective: Objective: Reviewed w/ RN - took mittens and abd binder off, refusing PEG feeds but taking amoxicillin. Vital Signs: Vital Signs Date Time Temp Pulse Resp B/P (MAP) Pulse Ox O2 Delivery O2 Flow Rate FiO2 02/16/19 08:00 Room Air 02/16/19 07:15 98.2 95 18 106/66 (79) 98 98.2 PE: GEN: NAD, in recliner LUNGS: CTAB HEART: RRR ABD: does not seem as tender, soft, PEG (~4cm) w/ some light brown/green drainage around it - cleaned with gauze NEURO/PSYCH: A & O 3 A/P: Carcinoid, chronic pain, non-compliance Oropharyngeal dysphagia s/p PEG 02/07/19 -- Difficult situation, continue per primary. Continue amoxicillin. SCOTT URBINA February 16, 2019 10:52
[2019-02-16 11:12] VITALS: BP 108/65
[2019-02-16 15:01] VITALS: BP 117/58
--- NOTE | 2019-02-16 15:26 | NUR ---
ALIDA following Pt. ALIDA spoke with pt's , Salome, regarding discharge plan. Pt's still refused SNU evaluation and wants to take pt home upon dc. ALIDA informed her regarding cost for tube feeding (Pump vs. Bolus) and also cost for pt's shot he receives q6hrs. Pt's reported they will be able to make payments on those costs until pt is able do the long acting drug with Dr. Oviedo (Pt is scheduled for next Wednesday with Dr. Oviedo office). Pt's had a question if they were able to administer the shots at home or if an RN needs to administer it. ALIDA informed to discuss this with PCP as insurance will not cover RN to visit family q6hrs. Pt's reported family is working on getting patient a bed and having a concrete done on driveway to make it w/c accessible. ALIDA informed Pt's SW is working with [facility] [place] regarding tube feeding and [facility] for skilled services. ALIDA discussed difference between skilled home health vs home care. Pt's agreeable with plans. ALIDA requested pt's to bring DPOA paperwork to [facility] so we can have it on file (ALIDA had requested this yesterday as well). ALIDA spoke with [facility] [place], phone: [phone], fax; [phone] and informed them Pt now has orders to do Bolus feeding in the hospital and will be needing Bolus feeding at home. ALIDA also informed them family will need a bedside teach prior to discharge and they will be contacting Pt's . Pt is on [facility] list if he discharges tomorrow or this weekend. Please inform APS worker, Sanjuana Mayes, if pt discharges home. Discussed with RN. Addendum: 02/16/19 at 1724 by JIGNA IRWIN SW received a voice mail from Pt's stating they won't be fixing the driveway for now but are currently working on getting a bed.
[2019-02-16 19:51] VITALS: BP 107/52
[2019-02-16] MEDS: HYDROcodone/APAP 5/325MG 1 TAB TABLET PO PRN (20:22)
--- NOTE | 2019-02-16 22:35 | PN ---
DATE: 02/16/2019 LOCATION: Room 656. SUBJECTIVE: The patient is awake, alert, very confused this morning, is accusing me of changing stories on him and whether he could be at home on his own at this point in time, which has never been discussed. He denies any specific complaints other than wanting to be home this morning. OBJECTIVE: VITAL SIGNS: Stable. He is afebrile, awake and alert, confused. CHEST: Clear. HEART: Regular. ABDOMEN: Ongoing palpable liver. EXTREMITIES: Unremarkable. Abdomen CT pelvis done yesterday shows stable large hepatic neoplasm and mesenteric adenopathy. The gastrostomy tube appears to be good according to GI. IMPRESSION: 1. Metastatic neuroendocrine tumor. 2. Confusion. 3. Dysphagia with tube feedings. 4. Marked deconditioning. PLAN: The needs to be instructed as far as tube feedings to consider any sort of discharge to home. PT and OT have been ordered, but have not seen the patient yet. We will have to arrange as an outpatient on discharge octreotide to be given in the Oncology office prior to going home. I am going to continue to try to convince the that home health needs to be part of the planner internship. He is going to need to go to some sort of facility where they are not going to be happy with. ROMANA KAUR MD DR: PARIS/yared JOB#: [id number] / [id number]
[2019-02-16 23:55] VITALS: BP 114/49
[2019-02-17] MEDS: OCTREOTIDE 100 MCG/ML VIAL SQ SCH ×3 (00:06→12:00)
[2019-02-17 03:30] VITALS: BP 118/87
[2019-02-17] MEDS: LEVOTHYROXINE 75 MCG TABLET PO SCH (05:08)
[2019-02-17] MEDS: HYDROcodone/APAP 5/325MG 1 TAB TABLET PO PRN (05:08)
[2019-02-17 07:00] VITALS: BP 131/69
[2019-02-17] MEDS: AMOXICILLIN 250 MG/5 ML ORAL.SUSP. PEG SCH (07:54)
[2019-02-17] MEDS: LANSOPRAZOLE 30 MG TAB.RAP.DR PO SCH (07:54)
--- NOTE | 2019-02-17 10:01 | PDOC ---
Subjective: Subjective: present, "worried about infection." He says tolerating tube feeds. Objective: Vital Signs: Vital Signs Date Time Temp Pulse Resp B/P (MAP) Pulse Ox O2 Delivery O2 Flow Rate FiO2 02/17/19 07:00 98.2 79 16 131/69 (89) 97 Room Air 98.2 PE: GEN: NAD LUNGS: CTAB HEART: RRR ABD: soft, tender per usual (non-specific), PEG in place (~4cm) w/ drainage NEURO/PSYCH: awake and alert A/P: Metastatic carcinoid Oropharyngeal dysphagia s/p PEG 02/07/19 -- Family concerned w/ drainage around PEG, will review w/ Dr. Brand. Continue antibiotics and feeds. SCOTT URBINA February 17, 2019 10:01
[2019-02-17] MEDS ORDERED: POLYETHYLENE GLYCOL 3350 17 GM PACKET. PEG PRN (10:15)
[2019-02-17 11:00] VITALS: BP_SYST 109; BP_SYST 111; BP_DIAS 66; BP_DIAS 73
--- NOTE | 2019-02-17 11:16 | SNU/HH DC ---
DISCHARGE WITH HOME HEALTH DISCHARGE INFORMATION: Discharge Date: February 17, 2019 Final Diagnosis: Problems Medical Problems: (1) Dehydration Status: Acute (2) Dementia Status: Acute Condition on Discharge: Stable CODE STATUS: Code Status: Full HOME HEALTH: Face to Face: I certify this patient is under my care and that I, or a nurse practitioner or physician's social science research assistant working with me, had a face to face encounter that meets the physician face to face encounter requirements with this patient on 02/17/19[]. Medical Complications: Other (dysphagia, cancer) RN For Eval/Treatment: Yes Physical Therapy For: Evalulation/Treatment Occupational Therapy For: Evaluation/Treatment Speech Language Pathology For: Evaluation/Treatment Pt Meets Homebound Status: Extreme weakness w/ amb., Limited distance walking, Poor cognition POST DISCHARGE ORDERS: Activity Instructions for Disc: Activity as tolerated Weight Bearing Status after Di: As tolerated DIET AFTER DISCHARGE: NPO Wound/Incision Care: No wound care needed CHECKS AFTER DISCHARGE: Checks after discharge: Check blood press - daily CERTIFICATION STATEMENT: Certification Statement: Certification Statement: Based on the above finding, I certify that this patient is confined to the home and needs intermittent alf care, physical therapy and/or speech therapy, or continues to need occupational therapy.~ This patient is under my care, and I have initiated the establishment of the plan of care.~ This patient will be followed by myself or a community physician who will periodically review the plan of care. Home Meds Active Scripts Lansoprazole (PREVACID) 30 Mg Tab.rap.dr, 30 MG FT DAILY for gi bleeding for 30 Days, #30 TAB Prov:ROMANA KAUR MD 02/08/19 Reported Medications Levothyroxine Sodium (LEVOTHYROXINE SODIUM) 75 Mcg Tablet, 1 TAB PO DAILY for thyroid, #30 TAB 5 Refills 09/07/18 Hydrocodone/Apap 5-325 (NORCO 5-325 TABLET) 1 Each Tablet, 1-2 TAB PO Q4-6HRS for abd pain, #40 TAB 09/07/18 Discontinued Scripts Octreotide Acetate (OCTREOTIDE ACETATE) 100 Mcg/1 Ml Vial, 100 MCG SQ Q6H for neuroendocrine tumor for 30 Days, #120 EACH Prov:ROMANA KAUR MD 02/08/19 ROMANA KAUR MD February 17, 2019 11:16
--- NOTE | 2019-02-17 11:17 | NUR ---
ALIDA following for discharge planning. Discussed with RN, pt discharging today with [facility] and [facility] for tube feedings. Mel, data processing systems project planner faxing discharge paperworkl and confirming with [facility] and [facility]. RN notified.
--- NOTE | 2019-02-18 17:55 | DS ---
DATE OF DISCHARGE: 02/17/2019 PRIMARY DIAGNOSIS: Metastatic neuroendocrine tumor. ADDITIONAL DIAGNOSES: 1. Profound weakness. 2. Dysphagia with feeding tube. 3. Status post gastrointestinal bleed. 4. Encephalopathy. CHIEF COMPLAINT AND HISTORY OF PRESENT ILLNESS: This 73-year-old white male was admitted after a flurry at [facility] with wanting to take him home, police becoming involved as well as turned in to authorities on safety for care at home. SUMMARY OF STAY: The patient was admitted, tube feedings were maintained, was taught bolus feeding by nursing prior to the time of discharge. Oncology saw him and arranged for once a month shot of octreotide to be done as an outpatient upon discharge. On the day of dismissal, was finally agreeable to home health and this will be continued at the time of discharge with ongoing rehabilitation for profound weakness. The patient's mental status vacillated through the stay from being fairly with it to completely encephalopathic at times. He was felt ready for discharge and this was done on the . DISPOSITION: The patient is discharged to home. Continue present tube feedings. Activity with help, home health to deal with PT, OT. Again, he will receive a shot of once a month octreotide after discharge on his way out of the hospital as an outpatient at the Oncology office. I will see him in 2 weeks in followup. ROMANA KAUR MD DR: [place]/yared JOB#: [id number] / [id number]
== END 2019-02-17 12:33 | disposition home health service (06) | DRG 843 ==
LOC: ER 18:16 → ED HOLD 18:55 → 6 SOUTH 21:53 → INTOOBSV 02-14 10:45 → OBSVTOIN 02-14 10:45
PROVIDERS: ADMIT Family Medicine; ATTEND Family Medicine
DX: C7A.00 Malignant carcinoid tumor of unspecified site (principal); G93.41 Metabolic encephalopathy; T76.01XA Adult neglect or abandonment, suspected, initial encounter; C78.7 Secondary malignant neoplasm of liver and intrahepatic bile duct; C77.5 Secondary and unspecified malignant neoplasm of intrapelvic lymph nodes; C7A.8 Other malignant neuroendocrine tumors; G89.29 Other chronic pain; R62.7 Adult failure to thrive; E86.0 Dehydration; R13.10 Dysphagia, unspecified; D64.9 Anemia, unspecified; D72.829 Elevated white blood cell count, unspecified; E03.9 Hypothyroidism, unspecified; F41.9 Anxiety disorder, unspecified; F03.90 Unspecified dementia, unspecified severity, without behavioral disturbance, psychotic disturbance, mood disturbance, and anxiety; K21.9 Gastro-esophageal reflux disease without esophagitis; Z91.19 Patient's noncompliance with other medical treatment and regimen; Z93.1 Gastrostomy status; Z87.891 Personal history of nicotine dependence; Z88.8 Allergy status to other drugs, medicaments and biological substances
CPT/HCPCS: 36415; 74177; 80048; 82962; 84443; 85025; 96372; G0378; G0379; J2354; Q9967; 97535; 99285-25